=== PATIENT | male | born 1945 | race American Indian/Alaskan Native ===

== ENCOUNTER 2017-03-12 08:09 | Day surgery (SDC) | payer MEDICARE ==
[~2017-03-12 08:09] MED LIST: ANCEF/STERILE WATER 2 GM/20 ML 2 GM/20 ML SYRINGE IV NR; HEPARIN 10,000 UNITS/10 ML ONE; MARCAINE 0.5% INFILTRATI ONE; NACL 0.9% 1000 ML 1,000 ML IV SCH; NACL 0.9% 250ML 250 ML ONE; PEPCID PO NR
[2017-03-12] MEDS ORDERED: SUBLIMAZE ONE (08:59)
[2017-03-12] MEDS ORDERED: DIPRIVAN 10 MG/ML IV ONE (08:59)
[2017-03-12] MEDS ORDERED: ROBINUL ONE (09:00)
[2017-03-12] MEDS ORDERED: XYLOCAINE MPF 2% ONE (09:01)
[2017-03-12] MEDS ORDERED: DECADRON ONE (09:01)
[2017-03-12] MEDS ORDERED: NACL 0.9% 100 ML ONE (09:02)
[2017-03-12] MEDS ORDERED: NEO SYNEPHRINE ONE (09:02)
--- NOTE | 2017-03-12 09:03 | Anesthesia Consultation ---
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
--- NOTE | 2017-03-12 09:04 | Anesthesia Day of Surgery ---
Anesthesia Day of Surgery - Day of Surgery Patient Examined: Yes Patient H&P Reviewed: Yes Patient is NPO: Yes Beta Blockers: Yes
[2017-03-12] MEDS ORDERED: BREVIBLOC IV ONE (09:17)
[2017-03-12] MEDS ORDERED: DILAUDID IV PRN (09:30)
[2017-03-12] MEDS ORDERED: ZOFRAN IV PRN (09:30)
[2017-03-12 09:51] LABS: BUN/Creatinine Ratio 6.02; Chloride 97.2 mmol/L (98-107); Potassium 4.4 mmol/L (3.6-5.0)
[2017-03-12 10:07] LABS: Basophils % (Auto) 0.8 % (0.0-1.8); Eosinophils % (Auto) 3.8 % (0.0-4.3); Hematocrit 38.6 % (35.5-45.6); Mean Corpuscular HGB Conc 31 % (32-34); Mean Corpuscular Hemoglobin 27 pg (28-32); Mean Corpuscular Volume 85 fl (84-94); Platelet Count 239 K/mm3 (140-440); Red Blood Count 4.52 M/mm3 (3.65-5.03); Red Cell Distribution Width 18.7 % (13.2-15.2); White Blood Count 10.5 K/mm3 (4.5-11.0)
[2017-03-12] MEDS ORDERED: NACL 0.9% IR ONE (10:43)
[2017-03-12] MEDS ORDERED: HEPARIN 10,000 UNITS/10 ML 1,000 UNIT in NACL 0.9% 250ML 250 ML IR ONE (10:43)
[2017-03-12] MEDS ORDERED: MARCAINE 0.5% INFILTRATI ONE ×2 (10:43)
--- NOTE | 2017-03-12 11:30 | Short Stay Summary ---
Short Stay Documentation Date of service: 03/12/17 Narrative H&P: See H&P - History H&P: obtained from office - Allergies and Medications Current Medications: Allergies No Known Allergies Allergy (Verified 01/15/17 22:31) Home Medications Medication Instructions Recorded Confirmed Last Taken Type Aspirin [Aspirin BABY CHEW TAB] 81 mg PO QDAY #30 tab.chew 01/20/17 03/12/1706/19 07:00 Rx Metoprolol [Lopressor TAB] 50 mg PO Q12HR #60 tablet 01/20/17 03/12/17 03/12/17 07:00 Rx NIFEdipine XL [Procardia Xl] 30 mg PO Q12HR #60 tablet 01/20/17 03/12/17 07:15 Rx Furosemide [Lasix TAB] 80 mg PO BID 03/01/17 03/01/17 02/23/17 History Active Medications Famotidine (Pepcid) 20 mg PO PREOP NR Stop: 03/12/17 19:00 Last Admin: 03/12/17 09:41 Dose: 20 mg Hydromorphone HCl (Dilaudid) 0.5 mg IV Q10MIN PRN PRN Reason: Pain , Severe (7-10) Stop: 03/12/17 15:00 Cefazolin Sodium (Ancef/Sterile Water 2 Gm/20 Ml) 2 gm in 20 mls @ 80 mls/hr IV PREOP NR PRN Reason: Protocol Stop: 03/12/17 23:00 Sodium Chloride (Nacl 0.9% 1000 Ml) 1,000 mls @ 42 mls/hr IV DIRECT DEALNO Last Admin: 03/12/17 09:25 Dose: 42 mls/hr Ondansetron HCl (Zofran) 4 mg IV ONCE PRN PRN Reason: Nausea And Vomiting Stop: 03/12/17 15:00 - Brief post op/procedure progress note Date of procedure: 03/12/17 Pre-op diagnosis: ESRD Post-op diagnosis: same Procedure: Creation of Left Arm Brachiocephalic AV Fistula Anesthesia: SHERLYN Surgeon: RADHA PRATT Estimated blood loss: minimal Pathology: none Condition: stable - Disposition Condition at discharge: Good Disposition: DC-01 TO HOME OR SELFCARE Short Stay Discharge Plan Activity: other (No heavy lifting with left arm) Wound: open to air, keep clean and dry, other (Okay to wash the wound with soap and water but do not soak in water) Follow up with: PRIMARY CARE, [Primary Care Provider] - 7 Days RADHA PRATT MD [Staff Physician] - 14 Days Prescriptions: HYDROcodone/APAP 7.5-325 [[place] 7.5/325] 1 each PO Q6HR PRN #50 tablet PRN Reason: Pain
--- NOTE | 2017-03-12 11:32 | Operative Report ---
Operative Report Operative Report: Date of procedure: 03/12/2017 Pre-operative diagnosis: End-Stage Renal Disease Post-operative diagnosis: End-Stage Renal Disease Procedure(s): Creation of Left Brachial Artery to Cephalic Vein Arteriovenous Fistula Surgeon: Rony Rhodes MD Welder Setter Resistance Machine: None Anesthesia: Gen. endotracheal anesthesia EBL: Minimal Counts: Correct Complications: None Condition: Stable Findings: Successful creation of left brachiocephalic arteriovenous fistula with excellent thrill and palpable radial pulse at the completion of the case. Specimen: None Indications: The patient is a 71-year-old male with a history of end-stage renal disease currently on hemodialysis through a right internal jugular permacath. He is in need of long-term access and found to be a suitable candidate for creation of a left brachiocephalic arteriovenous fistula. He was given the risks, benefits, and alternative procedures and consented to the procedure. Description of Procedure: The patient was brought to the operating room and laid in supine position after general endotracheal anesthesia was administered the patient was prepped and draped in normal sterile fashion. After anesthetizing the skin a transverse incision was created just below the antecubital crease. Dissection was carried down to the the cephalic vein using sharp dissection. The vein was dissected out both proximally and distally and suture ligated and divided distally. I then ran a 3 Suma proximally in the vein, to ensure patency of the vein. Then flushed the vein with heparinized saline and flow was controlled with a bulldog clamp. I then dissected out the brachial artery through this incision circumferentially both proximal and distal and controlled the artery with vessel loops. I then placed the vessel loops on tension controlling the flow through the artery and created an arteriotomy using an 11 blade and Neff scissors. I created an end to side anastomosis between the cephalic vein and brachial artery using a 6-0 Prolene in running fashion. Prior to completing the anastomosis I flushed the artery both proximally and distally and then advanced a 3 Suma proximally to break the spasm in the artery. I then completed the anastomosis and removed all vessel loops allowing flow into the fistula which had an excellent thrill. I achieved hemostasis with a combination of direct pressure and electrocautery. Once hemostasis was achieved I anesthetized the wound with Marcaine. I then closed the wound in 2 layers and 3-0 Vicryl in a running fashion to close the deep dermal layer and 4- 0 Monocryl in a running fashion in the subcuticular layer. I dressed the wound with Surgicel. The patient tolerated the procedure well, all sponge needle and instrument counts were correct. The patient was taken to recovery in stable condition.
--- NOTE | 2017-03-12 12:21 | Post Anesthesia Evaluation ---
- Post Anesthesia Evaluation Patient Participated: Yes Airway Patent: Yes Stable Respiratory Function: Yes Nausea/Vomiting: No Temp > 96.8F: Yes Pain Manageable: Yes Adequeate Hydration: Yes Anesthesia Complications: No Block Receding Appropriately: Not Applicable Patient on Ventilator: No
[2017-03-12 14:02] VITALS: BP 153/84
== END 2017-03-12 13:30 | disposition home or self-care (01) ==
LOC: OR 08:09
PROVIDERS: ATTEND Surgery Vascular Surgery
DX: I12.0 Hypertensive chronic kidney disease with stage 5 chronic kidney disease or end stage renal disease (principal); N18.6 End stage renal disease; I65.23 Occlusion and stenosis of bilateral carotid arteries; D64.9 Anemia, unspecified; Z79.82 Long term (current) use of aspirin; Z79.899 Other long term (current) drug therapy; Z99.2 Dependence on renal dialysis; Z86.73 Personal history of transient ischemic attack (TIA), and cerebral infarction without residual deficits; Z98.890 Other specified postprocedural states; Z87.891 Personal history of nicotine dependence
CPT/HCPCS: 36415; 36821; 80048; 85025; J0690; J1100; J1644; J2370; J2405; J2704; J3010; J7030; J7050

== ENCOUNTER 2019-03-11 09:58 | Emergency (ER) | payer MEDICARE ==
[2019-03-11 10:05] VITALS: BP 145/64
[2019-03-11 10:40] LABS: Basophils % (Auto) 0.7 % (0.0-1.8); Eosinophils # (Auto) 0.5 K/mm3 (0.0-0.4); Hematocrit 28.2 % (35.5-45.6); Hemoglobin 9.6 gm/dl (11.8-15.2); Lymphocytes # (Auto) 1.3 K/mm3 (1.2-5.4); Lymphocytes % (Auto) 19.6 % (13.4-35.0); Mean Corpuscular HGB Conc 34 % (32-34); Mean Corpuscular Volume 96 fl (84-94); Monocytes # (Auto) 0.6 K/mm3 (0.0-0.8); Monocytes % (Auto) 8.6 % (0.0-7.3); Platelet Count 174 K/mm3 (140-440); Red Blood Count 2.94 M/mm3 (3.65-5.03); Red Cell Distribution Width 13.9 % (13.2-15.2)
[2019-03-11 11:08] LABS: Albumin 3.9 g/dL (3.9-5); Calcium 9.7 mg/dL (8.4-10.2)
--- NOTE | 2019-03-11 11:15 | Emergency Department Report ---
ED General Adult HPI - General Chief complaint: Nausea/Vomiting/Diarrhea Stated complaint: RT/LT PAIN/VOMITING Time Seen by Provider: 03/11/19 11:10 Source: patient Mode of arrival: Ambulatory Limitations: No Limitations - History of Present Illness Initial comments: 73-year-old man presents to the emergency department when he declined transport to his dialysis center. He has not missed dialysis. This is his regularly scheduled day. He vomited once at home. He had some left mid quadrant abdominal pain which was moderate in nature. Both his pain and nausea and vomiting has resolved and he is asymptomatic at this time. The patient states that he has had a variety of different pain complaints before. This abdominal pain complaint is not new. It has spontaneously resolved before as well. She states he's had no recent fever or chills. He's had no signs of GI bleeding. He's had no breathing difficulty or chest pain. -: Gradual, minutes(s) Location: abdomen Radiation: non-radiation Quality: aching Consistency: now resolved Improves with: none Worsens with: none Associated Symptoms: denies other symptoms, nausea/vomiting (vomiting 1 no persistent nausea) Treatments Prior to Arrival: none - Related Data Home Medications Medication Instructions Recorded Confirmed Last Taken Furosemide [Lasix TAB] 80 mg PO DAILY 03/01/17 07/23/17 02/23/17 Previous Rx's Medication Instructions Recorded Last Taken Type Aspirin [Aspirin BABY CHEW TAB] 81 mg PO QDAY #30 tab.chew 01/20/17 03/12/17 07:00 Rx Metoprolol [Lopressor TAB] 50 mg PO Q12HR #60 tablet 01/20/17 03/12/17 07:00 Rx NIFEdipine XL [Procardia Xl] 30 mg PO Q12HR #60 tablet 01/20/17 03/12/17 07:15 Rx Acetaminophen [Acetaminophen TAB] 650 mg PO Q4H PRN #7 day 07/24/17 Unknown Rx DOXYCYCLINE Hyclate [Vibramycin 100 mg PO Q12HR #7 day 07/24/17 Unknown Rx CAP] levoFLOXacin [Levaquin] 250 mg PO Q48H #7 dose 07/24/17 Unknown Rx Sulfamethoxazole/Trimethoprim 1 each PO DAILY #7 tablet 09/07/18 Unknown Rx [Bactrim DS TAB] Allergies Allergy/AdvReac Type Severity Reaction Status Date / Time No Known Allergies Allergy Verified 05/15/17 22:31 ED Review of Systems ROS: Stated complaint: RT/LT PAIN/VOMITING Other details as noted in HPI Constitutional: denies: chills, fever Eyes: denies: eye pain, eye discharge, vision change ENT: denies: ear pain, throat pain Respiratory: denies: cough, shortness of breath, wheezing Cardiovascular: denies: chest pain, palpitations Endocrine: no symptoms reported Gastrointestinal: as per HPI, abdominal pain, nausea, vomiting. denies: diarrhea Genitourinary: denies: urgency, dysuria Musculoskeletal: denies: back pain, joint swelling, arthralgia Skin: denies: rash, lesions Neurological: denies: headache, weakness, paresthesias Psychiatric: denies: anxiety, depression Hematological/Lymphatic: denies: easy bleeding, easy bruising ED Past Medical Hx - Past Medical History Previous Medical History?: Yes Hx Hypertension: Yes Hx Congestive Heart Failure: Yes Hx Liver Disease: No Hx Renal Disease: Yes (HD T TH Sat) Hx HIV: No Additional medical history: TIA 2014, anemia - Surgical History Past Surgical History?: Yes Additional Surgical History: Left arm fistula - Social History Smoking Status: Former Smoker Substance Use Type: None - Medications Home Medications: Home Medications Medication Instructions Recorded Confirmed Last Taken Type Aspirin [Aspirin BABY CHEW TAB] 81 mg PO QDAY #30 tab.chew 01/20/17 07/23/17 03/12/17 07:00 Rx Metoprolol [Lopressor TAB] 50 mg PO Q12HR #60 tablet 01/20/17 07/23/17 03/12/17 07:00 Rx NIFEdipine XL [Procardia Xl] 30 mg PO Q12HR #60 tablet 01/20/17 07/23/17 03/12/17 07:15 Rx Furosemide [Lasix TAB] 80 mg PO DAILY 03/01/17 07/23/17 02/23/17 History Acetaminophen [Acetaminophen TAB] 650 mg PO Q4H PRN #7 day 07/24/17 Unknown Rx DOXYCYCLINE Hyclate [Vibramycin 100 mg PO Q12HR #7 day 07/24/17 Unknown Rx CAP] levoFLOXacin [Levaquin] 250 mg PO Q48H #7 dose 07/24/17 Unknown Rx Sulfamethoxazole/Trimethoprim 1 each PO DAILY #7 tablet 09/07/18 Unknown Rx [Bactrim DS TAB] ED Physical Exam - General Limitations: No Limitations General appearance: alert, in no apparent distress - Head Head exam: Present: atraumatic, normocephalic - Eye Eye exam: Present: normal appearance. Absent: scleral icterus - ENT ENT exam: Present: mucous membranes moist - Neck Neck exam: Present: normal inspection - Respiratory Respiratory exam: Present: normal lung sounds bilaterally. Absent: respiratory distress - Cardiovascular Cardiovascular Exam: Present: regular rate, normal rhythm. Absent: systolic murmur, diastolic murmur, rubs, gallop - GI/Abdominal GI/Abdominal exam: Present: soft, normal bowel sounds. Absent: distended, tenderness, guarding, rebound, rigid - Rectal Rectal exam: Present: deferred - Extremities Exam Extremities exam: Present: normal inspection - Back Exam Back exam: Present: normal inspection - Neurological Exam Neurological exam: Present: alert, oriented X3, CN II-XII intact. Absent: motor sensory deficit - Psychiatric Psychiatric exam: Present: normal affect, normal mood - Skin Skin exam: Present: warm, dry, intact, normal color. Absent: rash ED Course Vital Signs 03/11/19 10:02 Temperature 97.8 F Pulse Rate 66 Respiratory 16 Rate Blood Pressure 145/64 O2 Sat by Pulse 100 Oximetry - Reevaluation(s) Reevaluation #1: Discussed the case with Dr. Hernandez. Dr. Hernandez recommended routine outpatient dialysis. Patient was discharged in stable and asymptomatic condition on reexamination. He was counseled. 03/11/19 12:14 03/11/19 12:15 ED Medical Decision Making - Lab Data Result diagrams: 03/11/19 10:15 03/11/19 10:15 Laboratory Results - last 24 hr 03/11/19 03/11/19 10:15 10:15 WBC 6.8 RBC 2.94 L Hgb 9.6 L Hct 28.2 L MCV 96 H MCH 33 H MCHC 34 RDW 13.9 Plt Count 174 Lymph % (Auto) 19.6 [place] % (Auto) 8.6 H Eos % (Auto) 7.0 H Baso % (Auto) 0.7 Lymph # 1.3 [place] # 0.6 Eos # 0.5 H Baso # 0.0 Seg Neutrophils % 64.1 Seg Neutrophils # 4.3 Sodium 140 Potassium 4.8 Chloride 92.8 L Carbon Dioxide 26 Anion Gap 26 BUN 90 H Creatinine 16.1 H Estimated GFR 4 BUN/Creatinine Ratio 6 Glucose 104 H Calcium 9.7 Total Bilirubin 0.40 AST 13 ALT 20 Alkaline Phosphatase 165 H Total Protein 6.9 Albumin 3.9 Albumin/Globulin Ratio 1.3 - EKG Data -: EKG Interpreted by Me EKG shows normal: sinus rhythm Rate: normal - EKG Data Interpretation: no acute changes Critical care attestation.: If time is entered above; I have spent that time in minutes in the direct care of this critically ill patient, excluding procedure time. ED Disposition Clinical Impression: End stage renal disease on dialysis Abdominal pain Qualifiers: Abdominal location: left upper quadrant Qualified Code(s): R10.12 - Left upper quadrant pain Anemia in chronic kidney disease (CKD) Qualifiers: Chronic kidney disease stage: on chronic dialysis Qualified Code(s): N18.6 - End stage renal disease; D63.1 - Anemia in chronic kidney disease; Z99.2 - Dependence on renal dialysis Disposition: TO HOME OR SELFCARE Is pt being admited?: No Does the pt Need Aspirin: No Condition: Stable Instructions: Chronic Kidney Disease (ED), Abdominal Pain (ED) Additional Instructions: He may call your dialysis Center for a possible makeup session tomorrow. If you are doing well you can get dialysis on . Return to the emergency department any recurrent symptoms or acute change. Referrals: REBECCA GONSALVES MD [Primary Care Provider] - 3-5 Days Time of Disposition: 12:16
--- NOTE | 2019-03-11 12:08 | XRay Report ---
CHEST 1 VIEW 11:15 INDICATION / CLINICAL INFORMATION: hypertension. COMPARISON: None available. FINDINGS: SUPPORT DEVICES: None HEART / MEDIASTINUM: No significant abnormality. LUNGS / PLEURA: No areas of consolidation are seen. A slightly congested appearance is noted however. No pleural effusions are seen. No pneumothorax. ADDITIONAL FINDINGS: No significant additional findings. IMPRESSION: Slight congestion Signer Name: Jeronimo Mckinnon MD Signed: 03/11/2019 12:04 PM Workstation Name: [id number]
== END 2019-03-11 12:50 | disposition home or self-care (01) ==
LOC: ED 09:58
DX: R10.9 Unspecified abdominal pain (principal); D63.1 Anemia in chronic kidney disease; I13.2 Hypertensive heart and chronic kidney disease with heart failure and with stage 5 chronic kidney disease, or end stage renal disease; N18.6 End stage renal disease; I50.9 Heart failure, unspecified; Z99.2 Dependence on renal dialysis; Z79.82 Long term (current) use of aspirin; Z79.899 Other long term (current) drug therapy; Z87.891 Personal history of nicotine dependence; Z98.890 Other specified postprocedural states; Z86.73 Personal history of transient ischemic attack (TIA), and cerebral infarction without residual deficits
CPT/HCPCS: 36415; 71045; 80053; 85025; 93005; 93010

== ENCOUNTER 2019-05-31 12:18 | Inpatient (IN) | payer MEDICARE ==
--- NOTE | 2019-05-31 12:38 | Event Note ---
ED Screening Note Date of service: 05/31/19 Time: 12:34 ED Screening Note: This is a 73 y.o. M. that presents to the ER with abdominal pain for 3-4 days. + n/v/d PMH ESRD on dialysis, HTN, and anemia Patient haven't been to dialysis in 8 days. States he didn't go because he is tired of dialysis. This initial assessment/diagnostic orders/clinical plan/treatment(s) is/are subject to change based on patients health status, clinical progression and re- assessment by fellow clinical providers in the ED. Further treatment and workup at subsequent clinical providers discretion. Patient/guardian urged not to elope from the ED as their condition may be serious if not clinically assessed and managed. Initial orders include: Labs and CT of abdomen
[2019-05-31 13:18] LABS: Basophils # (Auto) 0.1 K/mm3 (0.0-0.1); Basophils % (Auto) 0.7 % (0.0-1.8); Eosinophils # (Auto) 0.3 K/mm3 (0.0-0.4); Eosinophils % (Auto) 3.8 % (0.0-4.3); Hematocrit 29.2 % (35.5-45.6); Hemoglobin 9.8 gm/dl (11.8-15.2); Lymphocytes # (Auto) 1.3 K/mm3 (1.2-5.4); Lymphocytes % (Auto) 16.5 % (13.4-35.0); Mean Corpuscular HGB Conc 34 % (32-34); Mean Corpuscular Volume 96 fl (84-94); Monocytes # (Auto) 0.7 K/mm3 (0.0-0.8); Monocytes % (Auto) 8.3 % (0.0-7.3); Platelet Count 169 K/mm3 (140-440); Red Blood Count 3.04 M/mm3 (3.65-5.03)
--- NOTE | 2019-05-31 13:32 | Emergency Department Report ---
ED General Adult HPI - General Chief complaint: Abdominal Pain Stated complaint: STOMACH PAIN/NO DIALYSIS Time Seen by Provider: 05/31/19 12:32 Source: patient Mode of arrival: Ambulatory Limitations: No Limitations - History of Present Illness Initial comments: This is a 73 year old man who arrives this time again with his . I saw them in March when he diverted his transfer from dialysis because he didn't feel good. He was medically cleared in the emergency department. 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 I suspect this gentleman is suffering from poor decision making versus dementia. His seems to be very passive in this process. There are both very nice when they arrive in the emergency department. However they simply tell me that he has not felt like being dialyzed for each sessions. I triaged CT of his abdomen and pelvis was ordered. However the patient tells me that he does not have "any pain anywhere". He complains of generalized malaise and weakness. He has developed some leg edema. His lites states that he has been on minimal exertion. He likewise denies chest pain. -: Gradual, week(s) Quality: other (now denies any pain) Associated Symptoms: denies other symptoms, malaise, shortness of breath, weak ness - Related Data Home Medications Medication Instructions Recorded Confirmed Last Taken Furosemide [Lasix TAB] 80 mg PO DAILY 03/01/17 07/23/17 02/23/17 Previous Rx's Medication Instructions Recorded Last Taken Type Aspirin [Aspirin BABY CHEW TAB] 81 mg PO QDAY #30 tab.chew 01/20/17 03/12/17 07:00 Rx Metoprolol [Lopressor TAB] 50 mg PO Q12HR #60 tablet 01/20/17 03/12/17 07:00 Rx NIFEdipine XL [Procardia Xl] 30 mg PO Q12HR #60 tablet 01/20/17 03/12/17 07:15 Rx Acetaminophen [Acetaminophen TAB] 650 mg PO Q4H PRN #7 day 07/24/17 Unknown Rx DOXYCYCLINE Hyclate [Vibramycin 100 mg PO Q12HR #7 day 07/24/17 Unknown Rx CAP] levoFLOXacin [Levaquin] 250 mg PO Q48H #7 dose 07/24/17 Unknown Rx Sulfamethoxazole/Trimethoprim 1 each PO DAILY #7 tablet 09/07/18 Unknown Rx [Bactrim DS TAB] Allergies Allergy/AdvReac Type Severity Reaction Status Date / Time No Known Allergies Allergy Verified 05/31/19 12:37 ED Review of Systems ROS: Stated complaint: STOMACH PAIN/NO DIALYSIS Other details as noted in HPI Constitutional: denies: chills, fever Eyes: denies: eye pain, eye discharge, vision change ENT: denies: ear pain, throat pain Respiratory: shortness of breath, SOB with exertion. denies: cough, wheezing Cardiovascular: denies: chest pain, palpitations Endocrine: no symptoms reported Gastrointestinal: denies: abdominal pain (variable history), nausea, vomiting, diarrhea Genitourinary: denies: urgency, dysuria Musculoskeletal: denies: back pain, joint swelling, arthralgia Skin: denies: rash, lesions Neurological: denies: headache, weakness, paresthesias Psychiatric: denies: anxiety, depression Hematological/Lymphatic: denies: easy bleeding, easy bruising ED Past Medical Hx - Past Medical History Hx Hypertension: Yes Hx Congestive Heart Failure: Yes Hx Liver Disease: No Hx Renal Disease: Yes (HD T Sun) Hx HIV: No Additional medical history: TIA 2014, anemia - Surgical History Additional Surgical History: Left arm fistula - Social History Smoking Status: Never Smoker - Medications Home Medications: Home Medications Medication Instructions Recorded Confirmed Last Taken Type Aspirin [Aspirin BABY CHEW TAB] 81 mg PO QDAY #30 tab.chew 01/20/17 07/23/17 03/12/17 07:00 Rx Metoprolol [Lopressor TAB] 50 mg PO Q12HR #60 tablet 01/20/17 07/23/17 03/12/17 07:00 Rx NIFEdipine XL [Procardia Xl] 30 mg PO Q12HR #60 tablet 01/20/17 07/23/17 03/12/17 07:15 Rx Furosemide [Lasix TAB] 80 mg PO DAILY 03/01/17 07/23/17 02/23/17 History Acetaminophen [Acetaminophen TAB] 650 mg PO Q4H PRN #7 day 07/24/17 Unknown Rx DOXYCYCLINE Hyclate [Vibramycin 100 mg PO Q12HR #7 day 07/24/17 Unknown Rx CAP] levoFLOXacin [Levaquin] 250 mg PO Q48H #7 dose 07/24/17 Unknown Rx Sulfamethoxazole/Trimethoprim 1 each PO DAILY #7 tablet 09/07/18 Unknown Rx [Bactrim DS TAB] ED Physical Exam - General Limitations: No Limitations ED Course Vital Signs 05/31/19 05/31/19 05/31/19 12:32 13:13 13:26 Temperature 97.9 F Pulse Rate 76 79 69 Respiratory 18 16 Rate Blood Pressure 177/86 Blood Pressure 187/86 173/86 [Right] O2 Sat by Pulse 98 97 Oximetry - Reevaluation(s) Reevaluation #1: D/W Dr. Estrada. He will enter HD ordres. 05/31/19 13:45 Reevaluation #2: HEENT Insulin and D50 to temporize. Dr. Mills has entered dialysis orders. Dialysis is ready to take patient. He is stable for dialysis. 05/31/19 14:21 ED Medical Decision Making - Lab Data Result diagrams: 05/31/19 12:50 05/31/19 12:50 Laboratory Results - last 24 hr 05/31/19 05/31/19 12:50 12:50 WBC 8.0 RBC 3.04 L Hgb 9.8 L Hct 29.2 L MCV 96 H MCH 32 MCHC 34 RDW 15.0 Plt Count 169 Lymph % (Auto) 16.5 [place] % (Auto) 8.3 H Eos % (Auto) 3.8 Baso % (Auto) 0.7 Lymph # 1.3 [place] # 0.7 Eos # 0.3 Baso # 0.1 Seg Neutrophils % 70.7 H Seg Neutrophils # 5.6 Lipase 37 Laboratory Results - last 24 hr 05/31/19 05/31/19 12:50 12:50 WBC 8.0 RBC 3.04 L Hgb 9.8 L Hct 29.2 L MCV 96 H MCH 32 MCHC 34 RDW 15.0 Plt Count 169 Lymph % (Auto) 16.5 [place] % (Auto) 8.3 H Eos % (Auto) 3.8 Baso % (Auto) 0.7 Lymph # 1.3 [place] # 0.7 Eos # 0.3 Baso # 0.1 Seg Neutrophils % 70.7 H Seg Neutrophils # 5.6 Lipase 37 - EKG Data -: EKG Interpreted by De EKG shows normal: sinus rhythm, axis, intervals, QRS complexes (QS in V2 could be consistent with old zone. Consider lead placement consider LVH, [place]), ST-T waves - EKG Data Interpretation: no acute changes - Radiology Data Radiology results: image reviewed (mild increased interstitial markings) Critical care attestation.: If time is entered above; I have spent that time in minutes in the direct care of this critically ill patient, excluding procedure time. ED Disposition Clinical Impression: Hyperkalemia, End-stage renal disease needing dialysis Fluid overload Qualifiers: Hypervolemia type: other Qualified Code(s): E87.79 - Other fluid overload Disposition: DC-09 OP ADMIT IP TO THIS HOSP Is pt being admited?: Yes Does the pt Need Aspirin: Yes Condition: Stable Time of Disposition: 14:22
[2019-05-31 13:44] LABS: Alanine Aminotransferase 27 units/L (7-56); Albumin 3.8 g/dL (3.9-5); Hemolysis Index 3
--- NOTE | 2019-05-31 13:46 | XRay Report ---
CHEST 1 VIEW 1:07 PM INDICATION / CLINICAL INFORMATION: Hypertension. Abdominal pain. COMPARISON: 03/11/2019. FINDINGS: SUPPORT DEVICES: None. HEART / MEDIASTINUM: The heart size is borderline with a left ventricular configuration. Pulmonary va sculature is normal for technique. There is mild aortic tortuosity with calcification in the arch, bu t no evidence of aneurysm. LUNGS / PLEURA: No significant pulmonary or pleural abnormality. No pneumothorax. ADDITIONAL FINDINGS: No significant additional findings. IMPRESSION: No acute abnormality or significant change. Signer Name: Bo Dias MD Signed: 05/31/2019 1:41 PM Workstation Name: [id number]
[2019-05-31 13:53] LABS: BUN/Creatinine Ratio 5; Bilirubin,Direct < 0.2 mg/dL (0-0.2); Blood Urea Nitrogen 116 mg/dL (9-20)
[2019-05-31] MEDS ORDERED: DEXTROSE 50% IN WATER (25GM) 50 ML SYRINGE IV ONE ×2 (13:56→19:22)
[2019-05-31] MEDS ORDERED: INSULIN REGULAR, HUMAN 100 UNITS/1 ML IV ONE (13:57)
[2019-05-31] MEDS ORDERED: SODIUM CHLORIDE 0.9% 100 ML IV PRN ×2 (14:00→14:07)
[2019-05-31] MEDS ORDERED: ASPIRIN 81 MG TAB CHEW PO ONE (14:22)
--- NOTE | 2019-05-31 15:47 | Consultation ---
History of Present Illness - Reason for Consult Consult date: 05/31/19 end stage renal disease, hyperkalemia Requesting physician: KIMBERLY BRADY - History of Present Illness This is a 73 yo M with past medical history of hypertension, chronic diastolic HF, ESRD on HD, who presents to [facility] ER with complaints of generalized malaise and weakness along with worsening b/l LE edema after missing HD for more than 1 week, since he was " tired " to continues dialysis. however since above symptoms got worse pt decided to come to the hospital. Pt denies fever, chills, n/vd, CP, SOB, palpitations, abdominal pain, dysuria. Past History Past Medical History: heart failure, hypertension, renal failure Past Surgical History: Other (AVF placement ) Social history: denies: smoking, alcohol abuse, prescription drug abuse, IV drug use Family history: hypertension Medications and Allergies Allergies Allergy/AdvReac Type Severity Reaction Status Date / Time No Known Allergies Allergy Verified 05/31/19 12:37 Home Medications Medication Instructions Recorded Confirmed Last Taken Type Aspirin [Aspirin BABY CHEW TAB] 81 mg PO QDAY #30 tab.chew 01/20/17 07/23/17 03/12/17 07:00 Rx Metoprolol [Lopressor TAB] 50 mg PO Q12HR #60 tablet 01/20/17 07/23/17 03/12/17 07:00 Rx NIFEdipine XL [Procardia Xl] 30 mg PO Q12HR #60 tablet 01/20/17 07/23/17 03/12/17 07:15 Rx Furosemide [Lasix TAB] 80 mg PO DAILY 03/01/17 07/23/17 02/23/17 History Acetaminophen [Acetaminophen TAB] 650 mg PO Q4H PRN #7 day 07/24/17 Unknown Rx DOXYCYCLINE Hyclate [Vibramycin 100 mg PO Q12HR #7 day 07/24/17 Unknown Rx CAP] levoFLOXacin [Levaquin] 250 mg PO Q48H #7 dose 07/24/17 Unknown Rx Sulfamethoxazole/Trimethoprim 1 each PO DAILY #7 tablet 09/07/18 Unknown Rx [Bactrim DS TAB] Review of Systems All systems: negative Constitutional: fatigue, weakness Exam - Vital Signs Vital signs: Vital Signs Temp Pulse Resp BP Pulse Ox 97.9 F 76 18 187/86 98 05/31/19 12:32 05/31/19 12:32 05/31/19 12:32 05/31/19 12:32 05/31/19 12:32 - General Appearance General appearance: well-developed, well-nourished, appears stated age EENT: ATNC, PERRL, mucous membranes moist Neck: Present: neck supple Respiratory: Decreased Breath Sounds Heart: regular, S1S2 Gastrointestinal: Present: normoactive bowel sounds Integumentary: no rash, other (++ edema b/l LE ) Neurologic: no focal deficit, alert and oriented x3, strength 5/5, CN 3-12 intact Psychiatric: mood/affect appropriate, cooperative Results - Lab Results 05/31/19 12:50 05/31/19 12:50 Most recent lab results Calcium 9.0 mg/dL (8.4-10.2) 05/31/19 12:50 Phosphorus 9.00 mg/dL (2.5-4.5) H 05/31/19 12:50 Assessment and Plan - Patient Problems (1) Hyperkalemia Current Visit: No Status: Acute Plan to address problem: arranged stat HD for correction of hyperkalemia and solute clearance. cont 2 g K renal diet (2) Uremia Current Visit: Yes Status: Acute Plan to address problem: due to missed HD. HD stat for solute clearance and correction of uremic complication (3) ESRD (end stage renal disease) on dialysis Current Visit: No Status: Acute Plan to address problem: HD stat, cont HD on MWF schedule thereafter (4) Hypertensive chronic kidney disease with stage 1 through stage 4 chronic kidney disease, or unspecified chronic kidney disease Current Visit: Yes Status: Acute Plan to address problem: monitor BP on current meds
[2019-05-31 16:10] LABS: Hepatitis B Surface Antigen Non-Reactive (Negative); Hepatitis C Virus Antibody Non-Reactive (NonReactive)
[2019-05-31] MEDS ORDERED: ACETAMINOPHEN 325 MG TAB PO PRN (19:18)
[2019-05-31] MEDS ORDERED: ONDANSETRON 4 MG/2 ML INJ IV PRN (19:18)
[2019-05-31] MEDS ORDERED: SODIUM BICARB 8.4% 50 MEQ/50 ML SYRINGE IV ONE (19:21)
[2019-05-31] MEDS ORDERED: CALCIUM GLUCONATE 1,000 MG in SODIUM CHLORIDE 0.9% 100 ML IV ONE (20:00)
[2019-05-31] MEDS: HEPARIN 5,000 UNIT/1 ML VIAL SUB-Q SCH (22:09)
[2019-06-01 04:21] LABS: Basophils % (Auto) 0.6 % (0.0-1.8); Eosinophils # (Auto) 0.3 K/mm3 (0.0-0.4); Eosinophils % (Auto) 4.1 % (0.0-4.3); Hematocrit 25.5 % (35.5-45.6); Hemoglobin 8.6 gm/dl (11.8-15.2); Lymphocytes # (Auto) 1.3 K/mm3 (1.2-5.4); Lymphocytes % (Auto) 19.3 % (13.4-35.0); Mean Corpuscular HGB Conc 34 % (32-34); Mean Corpuscular Volume 93 fl (84-94); Monocytes # (Auto) 0.7 K/mm3 (0.0-0.8); Monocytes % (Auto) 10.3 % (0.0-7.3); Platelet Count 163 K/mm3 (140-440); Red Blood Count 2.73 M/mm3 (3.65-5.03); Red Cell Distribution Width 15.2 % (13.2-15.2)
[2019-06-01 04:42] LABS: Calcium 8.4 mg/dL (8.4-10.2)
--- NOTE | 2019-06-01 07:03 | History and Physical Report ---
History of Present Illness Date of examination: 05/31/19 Date of admission: 05/31/19 14:22 Chief complaint: Increasing SOB for 12 days. History of present illness: 73 year old man with Htn,ESRD comes in for increasing sob.Orthopnea present.Missed HD for 10 days.No Chest pain. Increasing SOB on Minimal exertion.No fever or chills. Past Medical History Hypertension: Yes Congestive Heart Failure: Yes Renal Disease: Yes (HD T TH Sat) Additional medical history: TIA 2014, anemia Surgical History Additional Surgical History: Left arm fistula Social History Smoking Status: Never Smoker Family History Htn Medications Home Medications: Home Medications Medication Instructions Recorded Confirmed Last Taken Type Aspirin [Aspirin BABY CHEW TAB] 81 mg PO QDAY #30 tab.chew 01/20/17 07/23/17 03/12/17 07:00 Rx Metoprolol [Lopressor TAB] 50 mg PO Q12HR #60 tablet 01/20/17 07/23/17 03/12/17 07:00 Rx NIFEdipine XL [Procardia Xl] 30 mg PO Q12HR #60 tablet 01/20/17 07/23/17 03/12/17 07:15 Rx Furosemide [Lasix TAB] 80 mg PO DAILY 03/01/17 07/23/17 02/23/17 History Acetaminophen [Acetaminophen TAB] 650 mg PO Q4H PRN #7 day 07/24/17 Unknown Rx DOXYCYCLINE Hyclate [Vibramycin 100 mg PO Q12HR #7 day 07/24/17 Unknown Rx CAP] levoFLOXacin [Levaquin] 250 mg PO Q48H #7 dose 07/24/17 Unknown Rx Sulfamethoxazole/Trimethoprim 1 each PO DAILY #7 tablet 09/07/18 Unknown Rx [Bactrim DS TAB] Review of Systems ROS: Stated complaint: STOMACH PAIN/NO DIALYSIS Other details as noted in HPI Constitutional: denies: chills, fever Eyes: denies: eye pain, eye discharge, vision change ENT: denies: ear pain, throat pain Respiratory: shortness of breath, SOB with exertion. denies: cough, wheezing Cardiovascular: denies: chest pain, palpitations Endocrine: no symptoms reported Gastrointestinal: denies: abdominal pain (variable history), nausea, vomiting, diarrhea Genitourinary: denies: urgency, dysuria Musculoskeletal: denies: back pain, joint swelling, arthralgia Skin: denies: rash, lesions Neurological: denies: headache, weakness, paresthesias Psychiatric: denies: anxiety, depression Hematological/Lymphatic: denies: easy bleeding, easy bruising Past History Past Medical History: heart failure, hypertension, renal failure Past Surgical History: Other (AVF placement ) Social history: denies: smoking, alcohol abuse, prescription drug abuse, IV drug use Family history: hypertension Medications and Allergies Allergies Allergy/AdvReac Type Severity Reaction Status Date / Time No Known Allergies Allergy Verified 05/31/19 12:37 Home Medications Medication Instructions Recorded Confirmed Last Taken Type Aspirin [Aspirin BABY CHEW TAB] 81 mg PO QDAY #30 tab.chew 01/20/17 05/31/19 03/12/17 07:00 Rx Metoprolol [Lopressor TAB] 50 mg PO Q12HR #60 tablet 01/20/17 05/31/19 03/12/17 07:00 Rx NIFEdipine XL [Procardia Xl] 30 mg PO Q12HR #60 tablet 01/20/17 05/31/19 03/12/17 07:15 Rx Furosemide [Lasix TAB] 80 mg PO DAILY 03/01/17 05/31/19 02/23/17 History Acetaminophen [Acetaminophen TAB] 650 mg PO Q4H PRN #7 day 07/24/17 05/31/19 Unknown Rx DOXYCYCLINE Hyclate [Vibramycin 100 mg PO Q12HR #7 day 07/24/17 05/31/19 Unknown Rx CAP] levoFLOXacin [Levaquin] 250 mg PO Q48H #7 dose 07/24/17 05/31/19 Unknown Rx Sulfamethoxazole/Trimethoprim 1 each PO DAILY #7 tablet 09/07/18 05/31/19 Unknown Rx [Bactrim DS TAB] Active Meds: Active Medications Acetaminophen (Tylenol) 650 mg PO Q4H PRN PRN Reason: Pain MILD(1-3)/Fever >100.5/ARMAS Heparin Sodium (Porcine) (Heparin) 5,000 unit SUB-Q Q12HR DELANO Last Admin: 05/31/19 22:09 Dose: 5,000 unit Documented by: Sodium Chloride (Nacl 0.9%) 100 mls @ 999 mls/hr IV AUGUST PRN PRN Reason: Hypotension Ondansetron HCl (Zofran) 4 mg IV Q8H PRN PRN Reason: Nausea And Vomiting Sodium Chloride (Sodium Chloride Flush Syringe 10 Ml) 10 ml IV BID DELANO Last Admin: 05/31/19 22:09 Dose: 10 ml Documented by: Sodium Chloride (Sodium Chloride Flush Syringe 10 Ml) 10 ml IV PRN PRN PRN Reason: LINE FLUSH Exam - Constitutional Vitals: Temp Pulse Resp BP Pulse Ox 99.1 F 82 18 171/83 98 05/31/19 20:16 05/31/19 22:00 05/31/19 22:00 05/31/19 20:16 05/31/19 22:00 General appearance: Present: no acute distress, well-nourished - EENT Eyes: Present: PERRL ENT: hearing intact, clear oral mucosa - Neck Neck: Present: supple, normal ROM - Respiratory Respiratory effort: normal Respiratory: bilateral: CTA, rales - Cardiovascular Heart rate: 88 Rhythm: regular Heart Sounds: Present: S1 & S2. Absent: rub, click - Extremities Extremities: no ischemia, pulses intact, pulses symmetrical, No edema Peripheral Pulses: within normal limits - Abdominal General gastrointestinal: Present: soft, non-tender, non-distended, normal bowel sounds Male genitourinary: Present: normal - Integumentary Integumentary: Present: clear, warm, dry - Musculoskeletal Musculoskeletal: gait normal, strength equal bilaterally - Psychiatric Psychiatric: appropriate mood/affect, intact judgment & insight - Neurologic Neurologic: CNII-XII intact, moves all extremities - Allied Health Allied health notes reviewed: nursing, case management Results - Labs CBC & Chem 7: 06/01/19 03:17 06/01/19 03:17 Labs: Laboratory Last Values WBC 6.6 K/mm3 (4.5-11.0) 06/01/19 03:17 RBC 2.73 M/mm3 (3.65-5.03) L 06/01/19 03:17 Hgb 8.6 gm/dl (11.8-15.2) L 06/01/19 03:17 Hct 25.5 % (35.5-45.6) L 06/01/19 03:17 MCV 93 fl (84-94) 06/01/19 03:17 MCH 32 pg (28-32) 06/01/19 03:17 MCHC 34 % (32-34) 06/01/19 03:17 RDW 15.2 % (13.2-15.2) 06/01/19 03:17 Plt Count 163 K/mm3 (140-440) 06/01/19 03:17 Lymph % (Auto) 19.3 % (13.4-35.0) 06/01/19 03:17 [place] % (Auto) 10.3 % (0.0-7.3) H 06/01/19 03:17 Eos % (Auto) 4.1 % (0.0-4.3) 06/01/19 03:17 Baso % (Auto) 0.6 % (0.0-1.8) 06/01/19 03:17 Lymph # 1.3 K/mm3 (1.2-5.4) 06/01/19 03:17 [place] # 0.7 K/mm3 (0.0-0.8) 06/01/19 03:17 Eos # 0.3 K/mm3 (0.0-0.4) 06/01/19 03:17 Baso # 0.0 K/mm3 (0.0-0.1) 06/01/19 03:17 Seg Neutrophils % 65.7 % (40.0-70.0) 06/01/19 03:17 Seg Neutrophils # 4.3 K/mm3 (1.8-7.7) 06/01/19 03:17 Sodium 140 mmol/L (137-145) 06/01/19 03:17 Potassium 4.6 mmol/L (3.6-5.0) 06/01/19 03:17 Chloride 96.4 mmol/L (98-107) L 06/01/19 03:17 Carbon Dioxide 26 mmol/L (22-30) D 06/01/19 03:17 22 mmol/L 06/01/19 03:17 BUN 44 mg/dL (9-20) H 06/01/19 03:17 13.0 mg/dL (0.8-1.5) H 06/01/19 03:17 Estimated GFR 5 ml/min 06/01/19 03:17 3 % 06/01/19 03:17 Glucose 86 mg/dL (75-100) 06/01/19 03:17 Calcium 8.4 mg/dL (8.4-10.2) 06/01/19 03:17 Phosphorus 9.00 mg/dL (2.5-4.5) H 05/31/19 12:50 0.40 mg/dL (0.1-1.2) 05/31/19 12:50 < 0.2 mg/dL (0-0.2) 05/31/19 12:50 0.2 mg/dL 05/31/19 12:50 AST 13 units/L (5-40) 05/31/19 12:50 ALT 27 units/L (7-56) 05/31/19 12:50 139 units/L (35-129) H 05/31/19 12:50 7.2 g/dL (6.3-8.2) 05/31/19 12:50 3.8 g/dL (3.9-5) L 05/31/19 12:50 1.1 % 05/31/19 12:50 37 units/L (13-60) 05/31/19 12:50 Hepatitis A IgM Ab Non-reactive (NonReactive) 05/31/19 14:15 Hep Bs Antigen Non-reactive (Negative) 05/31/19 14:15 Hep B Core IgM Ab Non-reactive (NonReactive) 05/31/19 14:15 Non-reactive (NonReactive) 05/31/19 14:15 Short CBC 05/31/19 06/01/19 Range/Units 12:50 03:17 WBC 8.0 6.6 (4.5-11.0) K/mm3 Hgb 9.8 L 8.6 L (11.8-15.2) gm/dl Hct 29.2 L 25.5 L (35.5-45.6) % Plt Count 169 163 (140-440) K/mm3 BMP 05/31/19 05/31/19 06/01/19 12:50 23:14 03:17 Sodium 140 140 Potassium 6.4 H* 4.1 D 4.6 Chloride 95.8 L 96.4 L Carbon Dioxide 18 L 26 D BUN 116 H 44 H Creatinine 24.7 H 13.0 H Glucose 112 H 86 Calcium 9.0 8.4 Liver Function 05/31/19 Range/Units 12:50 Total Bilirubin 0.40 (0.1-1.2) mg/dL Direct Bilirubin < 0.2 (0-0.2) mg/dL AST 13 (5-40) units/L ALT 27 (7-56) units/L Alkaline Phosphatase 139 H (35-129) units/L Albumin 3.8 L (3.9-5) g/dL - Imaging and Cardiology EKG: report reviewed Chest x-ray: report reviewed Assessment and Plan Advance Directives: Yes (Full code) VTE prophylaxis?: Chemical Plan of care discussed with patient/family: Yes - Patient Problems (1) Acute exacerbation of congestive heart failure Current Visit: Yes Status: Acute Qualifiers: Heart failure type: combined systolic and diastolic Qualified Code(s): I50.43 - Acute on chronic combined systolic (congestive) and diastolic (congestive) heart failure Plan to address problem: Secondary to fluid overload Increased ultrafiltration (2) Acute on chronic renal failure Current Visit: No Status: Acute Qualifiers: Acute renal failure type: unspecified Chronic kidney disease stage: stage 5, not on chronic dialysis Qualified Code(s): N17.9 - Acute kidney failure, unspecified; N18.5 - Chronic kidney disease, stage 5 Plan to address problem: Sec to missed HD (3) ESRD (end stage renal disease) on dialysis Current Visit: No Status: Acute (4) Volume overload Current Visit: Yes Status: Acute Qualifiers: Hypervolemia type: unspecified Qualified Code(s): E87.70 - Fluid overload, unspecified Plan to address problem: Sec to missed HD (5) Hyperkalemia Current Visit: No Status: Acute Plan to address problem: Treaed in ED with Kayexalate calcium gluconate Emergent HD (6) HTN (hypertension) Current Visit: Yes Status: Chronic Qualifiers: Hypertension type: essential hypertension Qualified Code(s): I10 - Essential (primary) hypertension Plan to address problem: Cont antihypertensives (7) DVT prophylaxis Current Visit: Yes Status: Acute Plan to address problem: On Heparin and GI prophylaxis
[2019-06-01] MEDS ORDERED: ACETAMINOPHEN 325 MG TAB PO PRN ×2 (07:14→07:15)
[2019-06-01] MEDS ORDERED: ONDANSETRON 4 MG/2 ML INJ IV PRN (07:15)
[2019-06-01] MEDS ORDERED: HYDROmorphone 1 MG/1 ML INJ IV PRN (07:15)
[2019-06-01] MEDS ORDERED: oxyCODONE /ACETAMINOPHEN 5-325MG TAB PO PRN (07:15)
[2019-06-01] MEDS ORDERED: NON-FORMULARY EACH (Furosemide [Lasix Tab] 80 MG) PO SCH (10:00)
--- NOTE | 2019-06-01 10:16 | Progress Note ---
Assessment and Plan - Patient Problems (1) Hyperkalemia Current Visit: No Status: Acute Plan to address problem: corrected with HD. cont 2 g K renal diet (2) Uremia Current Visit: Yes Status: Acute Plan to address problem: improved with HD (3) ESRD (end stage renal disease) on dialysis Current Visit: No Status: Acute Plan to address problem: cont HD on MWF schedule (4) Hypertensive chronic kidney disease with stage 1 through stage 4 chronic kidney disease, or unspecified chronic kidney disease Current Visit: Yes Status: Acute Plan to address problem: monitor BP on current meds Subjective Date of service: 06/01/19 Principal diagnosis: ESRD Interval history: Pt awake, alert, in no acute distress Objective - Vital Signs Vital signs: Vital Signs - 12hr 06/01/19 07:38 Temperature 98.3 F Pulse Rate 78 Respiratory 12 Rate Blood Pressure 163/81 O2 Sat by Pulse 96 Oximetry - General Appearance General appearance: well-developed, well-nourished, appears stated age EENT: ATNC, PERRL, mucous membranes moist Neck: no JVD Respiratory: Present: Clear to Ascultation Cardiology: regular, S1S2 Gastrointestinal: normoactive bowel sounds Integumentary: no rash, other (+ edema ) Neurologic: no focal deficit, alert and oriented x3, strength 5/5, CN 3-12 intact Psychiatric: mood/affect appropriate, cooperative - Lab 06/01/19 03:17 06/01/19 03:17 Most recent lab results Calcium 8.4 mg/dL (8.4-10.2) 06/01/19 03:17 Phosphorus 9.00 mg/dL (2.5-4.5) H 05/31/19 12:50 Medications & Allergies - Medications Allergies/Adverse Reactions: Allergies No Known Allergies Allergy (Verified 05/31/19 12:37) Home Medications: Home Medications Medication Instructions Recorded Confirmed Last Taken Type Aspirin [Aspirin BABY CHEW TAB] 81 mg PO QDAY #30 tab.chew 01/20/17 05/31/19 03/12/17 07:00 Rx Metoprolol [Lopressor TAB] 50 mg PO Q12HR #60 tablet 01/20/17 05/31/19 03/12/17 07:00 Rx NIFEdipine XL [Procardia Xl] 30 mg PO Q12HR #60 tablet 01/20/17 05/31/19 03/12/17 07:15 Rx Furosemide [Lasix TAB] 80 mg PO DAILY 03/01/17 05/31/19 02/23/17 History Acetaminophen [Acetaminophen TAB] 650 mg PO Q4H PRN #7 day 07/24/17 05/31/19 Unknown Rx DOXYCYCLINE Hyclate [Vibramycin 100 mg PO Q12HR #7 day 07/24/17 05/31/19 Unknown Rx CAP] levoFLOXacin [Levaquin] 250 mg PO Q48H #7 dose 07/24/17 05/31/19 Unknown Rx Sulfamethoxazole/Trimethoprim 1 each PO DAILY #7 tablet 09/07/18 05/31/19 Unknown Rx [Bactrim DS TAB] Active Medications: Generic Name Dose Route Start Last Admin Trade Name Freq PRN Reason Stop Dose Admin Acetaminophen 650 mg 06/01/19 07:15 Tylenol PO Q4H PRN Pain MILD(1-3)/Fever >100.5/ARMAS Aspirin 81 mg 06/01/19 10:00 Baby Aspirin PO QDAY [facility] Famotidine 10 mg 06/01/19 10:00 Pepcid PO BID [facility] Furosemide 80 mg 06/01/19 10:00 Lasix PO DAILY [facility] Heparin Sodium (Porcine) 5,000 unit 05/31/19 22:00 05/31/19 22:09 Heparin SUB-Q 5,000 unit Q12HR [facility] Administration Hydromorphone HCl 0.5 mg 06/01/19 07:15 Dilaudid IV Q3H PRN Pain , Severe (7-10) Sodium Chloride 100 mls @ 999 mls/hr 05/31/19 14:07 Nacl 0.9% IV AUGUST PRN Hypotension Metoprolol Tartrate 50 mg 06/01/19 10:00 Lopressor PO Q12HR DELANO Nifedipine 30 mg 06/01/19 10:00 Procardia Xl PO Q12HR [facility] Ondansetron HCl 4 mg 05/31/19 19:18 Zofran IV Q8H PRN Nausea And Vomiting Oxycodone/Acetaminophen 1 tab 06/01/19 07:15 Percocet 5/325 PO Q6H PRN Pain, Moderate (4-6) Sodium Chloride 10 ml 06/01/19 10:00 Sodium Chloride Flush Syringe 10 Ml IV BID DELANO Sodium Chloride 10 ml 06/01/19 07:15 Sodium Chloride Flush Syringe 10 Ml IV PRN PRN LINE FLUSH
[2019-06-01] MEDS: ASPIRIN 81 MG TAB CHEW PO SCH (10:18)
[2019-06-01] MEDS: FAMOTIDINE 10 MG TAB PO SCH ×2 (10:18→21:08)
[2019-06-01] MEDS: METOPROLOL TARTRATE 50 MG TAB PO SCH ×2 (10:18→21:09)
[2019-06-01] MEDS: FUROSEMIDE 40 MG TAB PO SCH (10:18)
[2019-06-01] MEDS: HEPARIN 5,000 UNIT/1 ML VIAL SUB-Q SCH ×2 (10:18→21:19)
[2019-06-01] MEDS: NIFEdipine XL 30 MG TAB PO SCH ×2 (10:18→21:09)
--- NOTE | 2019-06-01 12:32 | Progress Note ---
Assessment and Plan Assessment and plan: --Hyperkalemia; present on admission Corrected, monitor lites, HD per schedule --Acute fluid overload /noncompliance with dialysis Patient missed hemodialysis for 10 days Stat hemodialysis, strongly advised competence --End-stage renal disease; on hemodialysis Nephrology consulted, HD per schedule --Hypertension; moderate control Continue current antihypertensives and when necessary medications --Anemia of chronic kidney disease; Closely monitor H&H and transfuse as needed --Medical noncompliance; counseling Advised to adhere to hemodialysis per schedule --DVT prophylaxis; heparin renal dose Monitor closely and adjust management as needed Plan of care reviewed with the patient and his at the bedside Disposition; continue inpatient care, discharge when medically stable History Interval history: Patient seen and examined medical records reviewed Admitted with worsening shortness of breath and fluid overload Missed hemodialysis for 10 days Patient feels slightly better. No new complaints Vital signs reviewed Hospitalist Physical - Constitutional Vitals: Temp Pulse Resp BP Pulse Ox 98.3 F 78 12 163/81 96 06/01/19 07:38 06/01/19 10:00 06/01/19 07:38 06/01/19 07:38 06/01/19 07:38 General appearance: Present: no acute distress, well-nourished - EENT Eyes: Present: PERRL, EOM intact - Neck Neck: Present: supple, normal ROM - Respiratory Respiratory effort: normal Respiratory: bilateral: diminished, rales, negative: rhonchi, wheezing - Cardiovascular Rhythm: regular Heart Sounds: Present: S1 & S2 - Extremities Extremities: no ischemia, No edema - Abdominal General gastrointestinal: soft, non-tender, non-distended, normal bowel sounds - Integumentary Integumentary: Present: clear, warm - Psychiatric Psychiatric: appropriate mood/affect, cooperative - Neurologic Neurologic: CNII-XII intact, moves all extremities Results - Labs CBC & Chem 7: 06/01/19 03:17 06/01/19 03:17 Labs: Laboratory Last Values WBC 6.6 K/mm3 (4.5-11.0) 06/01/19 03:17 RBC 2.73 M/mm3 (3.65-5.03) L 06/01/19 03:17 Hgb 8.6 gm/dl (11.8-15.2) L 06/01/19 03:17 Hct 25.5 % (35.5-45.6) L 06/01/19 03:17 MCV 93 fl (84-94) 06/01/19 03:17 MCH 32 pg (28-32) 06/01/19 03:17 MCHC 34 % (32-34) 06/01/19 03:17 RDW 15.2 % (13.2-15.2) 06/01/19 03:17 Plt Count 163 K/mm3 (140-440) 06/01/19 03:17 Lymph % (Auto) 19.3 % (13.4-35.0) 06/01/19 03:17 [place] % (Auto) 10.3 % (0.0-7.3) H 06/01/19 03:17 Eos % (Auto) 4.1 % (0.0-4.3) 06/01/19 03:17 Baso % (Auto) 0.6 % (0.0-1.8) 06/01/19 03:17 Lymph # 1.3 K/mm3 (1.2-5.4) 06/01/19 03:17 [place] # 0.7 K/mm3 (0.0-0.8) 06/01/19 03:17 Eos # 0.3 K/mm3 (0.0-0.4) 06/01/19 03:17 Baso # 0.0 K/mm3 (0.0-0.1) 06/01/19 03:17 Seg Neutrophils % 65.7 % (40.0-70.0) 06/01/19 03:17 Seg Neutrophils # 4.3 K/mm3 (1.8-7.7) 06/01/19 03:17 Sodium 140 mmol/L (137-145) 06/01/19 03:17 Potassium 4.6 mmol/L (3.6-5.0) 06/01/19 03:17 Chloride 96.4 mmol/L (98-107) L 06/01/19 03:17 Carbon Dioxide 26 mmol/L (22-30) D 06/01/19 03:17 22 mmol/L 06/01/19 03:17 BUN 44 mg/dL (9-20) H 06/01/19 03:17 13.0 mg/dL (0.8-1.5) H 06/01/19 03:17 Estimated GFR 5 ml/min 06/01/19 03:17 3 % 06/01/19 03:17 Glucose 86 mg/dL (75-100) 06/01/19 03:17 4.6 % (4-6) 06/01/19 09:50 Calcium 8.4 mg/dL (8.4-10.2) 06/01/19 03:17 Phosphorus 9.00 mg/dL (2.5-4.5) H 05/31/19 12:50 0.40 mg/dL (0.1-1.2) 05/31/19 12:50 < 0.2 mg/dL (0-0.2) 05/31/19 12:50 0.2 mg/dL 05/31/19 12:50 AST 13 units/L (5-40) 05/31/19 12:50 ALT 27 units/L (7-56) 05/31/19 12:50 139 units/L (35-129) H 05/31/19 12:50 7.2 g/dL (6.3-8.2) 05/31/19 12:50 3.8 g/dL (3.9-5) L 05/31/19 12:50 1.1 % 05/31/19 12:50 37 units/L (13-60) 05/31/19 12:50 Hepatitis A IgM Ab Non-reactive (NonReactive) 05/31/19 14:15 Hep Bs Antigen Non-reactive (Negative) 05/31/19 14:15 Hep B Core IgM Ab Non-reactive (NonReactive) 05/31/19 14:15 Non-reactive (NonReactive) 05/31/19 14:15 Active Medications - Current Medications Current Medications: Generic Name Dose Route Start Last Admin Trade Name Freq PRN Reason Stop Dose Admin Acetaminophen 650 mg 06/01/19 07:15 Tylenol PO Q4H PRN Pain MILD(1-3)/Fever >100.5/ARMAS Aspirin 81 mg 06/01/19 10:00 06/01/19 10:18 Baby Aspirin PO 81 mg QDAY DEALNO Administration Famotidine 10 mg 06/01/19 10:00 06/01/19 10:18 Pepcid PO 10 mg BID DELANO Administration Furosemide 80 mg 06/01/19 10:00 06/01/19 10:18 Lasix PO 80 mg DAILY DELANO Administration Heparin Sodium (Porcine) 5,000 unit 05/31/19 22:00 06/01/19 10:18 Heparin SUB-Q Not Given Q12HR DELANO Hydromorphone HCl 0.5 mg 06/01/19 07:15 Dilaudid IV Q3H PRN Pain , Severe (7-10) Sodium Chloride 100 mls @ 999 mls/hr 05/31/19 14:07 Nacl 0.9% IV AUGUST PRN Hypotension Metoprolol Tartrate 50 mg 06/01/19 10:00 06/01/19 10:18 Lopressor PO 50 mg Q12HR DELANO Administration Nifedipine 30 mg 06/01/19 10:00 06/01/19 10:18 Procardia Xl PO 30 mg Q12HR DELANO Administration Ondansetron HCl 4 mg 05/31/19 19:18 Zofran IV Q8H PRN Nausea And Vomiting Oxycodone/Acetaminophen 1 tab 06/01/19 07:15 Percocet 5/325 PO Q6H PRN Pain, Moderate (4-6) Sodium Chloride 10 ml 06/01/19 10:00 06/01/19 10:18 Sodium Chloride Flush Syringe 10 Ml IV 10 ml BID DELANO Administration Sodium Chloride 10 ml 06/01/19 07:15 Sodium Chloride Flush Syringe 10 Ml IV PRN PRN LINE FLUSH
[2019-06-02] MEDS ORDERED: HALOPERIDOL LACTATE 5 MG/1 ML INJ IM STA (03:45)
[2019-06-02] MEDS ORDERED: SODIUM CHLORIDE 0.9% 100 ML IV PRN (09:14)
[2019-06-02] MEDS: HEPARIN 5,000 UNIT/1 ML VIAL SUB-Q SCH (09:20)
[2019-06-02] MEDS: FUROSEMIDE 40 MG TAB PO SCH (09:20)
[2019-06-02] MEDS: ASPIRIN 81 MG TAB CHEW PO SCH (09:20)
[2019-06-02] MEDS: NIFEdipine XL 30 MG TAB PO SCH (09:20)
[2019-06-02] MEDS: FAMOTIDINE 10 MG TAB PO SCH (09:21)
--- NOTE | 2019-06-02 09:23 | Progress Note ---
Assessment and Plan - Patient Problems (1) Hyperkalemia Current Visit: No Status: Acute Plan to address problem: corrected with HD. cont 2 g K renal diet (2) Uremia Current Visit: Yes Status: Acute Plan to address problem: improved with HD (3) ESRD (end stage renal disease) on dialysis Current Visit: No Status: Acute Plan to address problem: HD arranged for today, pt can be discharged after HD from renal stand point and resume outpatient HD on TTS schedule at [facility]. Discussed with patient and regarding importance of compliance with prescribed treatments. (4) Hypertensive chronic kidney disease with stage 1 through stage 4 chronic kidney disease, or unspecified chronic kidney disease Current Visit: Yes Status: Acute Plan to address problem: monitor BP on current meds Subjective Date of service: 06/02/19 Principal diagnosis: ESRD Interval history: Pt awake, alert, in no acute distress Objective - Vital Signs Vital signs: Vital Signs - 12hr 06/02/19 06/02/19 06/02/19 01:31 03:01 07:39 Temperature 98.3 F 97.8 F Pulse Rate 70 68 Respiratory 20 18 Rate Blood Pressure 159/83 165/76 O2 Sat by Pulse 97 94 Oximetry 06/02/19 07:55 Temperature Pulse Rate Respiratory 18 Rate Blood Pressure O2 Sat by Pulse 94 Oximetry - General Appearance General appearance: well-developed, well-nourished, appears stated age EENT: ATNC, PERRL, mucous membranes moist Neck: no JVD Respiratory: Present: Clear to Ascultation Cardiology: regular, S1S2 Gastrointestinal: normoactive bowel sounds Integumentary: no rash, other (no edema ) Neurologic: no focal deficit, alert and oriented x3, strength 5/5, CN 3-12 intact Psychiatric: mood/affect appropriate, cooperative - Lab 06/01/19 03:17 06/01/19 03:17 Most recent lab results Calcium 8.4 mg/dL (8.4-10.2) 06/01/19 03:17 Phosphorus 9.00 mg/dL (2.5-4.5) H 05/31/19 12:50 Medications & Allergies - Medications Allergies/Adverse Reactions: Allergies No Known Allergies Allergy (Verified 05/31/19 12:37) Home Medications: Home Medications Medication Instructions Recorded Confirmed Last Taken Type Aspirin [Aspirin BABY CHEW TAB] 81 mg PO QDAY #30 tab.chew 05/20/17 09/28/19 07/10/17 07:00 Rx Metoprolol [Lopressor TAB] 50 mg PO Q12HR #60 tablet 01/20/17 05/31/19 03/12/17 07:00 Rx NIFEdipine XL [Procardia Xl] 30 mg PO Q12HR #60 tablet 01/20/17 05/31/19 03/12/17 07:15 Rx Furosemide [Lasix TAB] 80 mg PO DAILY 03/01/17 05/31/19 02/23/17 History Acetaminophen [Acetaminophen TAB] 650 mg PO Q4H PRN #7 day 07/24/17 05/31/19 Unknown Rx DOXYCYCLINE Hyclate [Vibramycin 100 mg PO Q12HR #7 day 07/24/17 05/31/19 Unknown Rx CAP] levoFLOXacin [Levaquin] 250 mg PO Q48H #7 dose 07/24/17 05/31/19 Unknown Rx Sulfamethoxazole/Trimethoprim 1 each PO DAILY #7 tablet 09/07/18 05/31/19 Unknown Rx [Bactrim DS TAB] Active Medications: Generic Name Dose Route Start Last Admin Trade Name Freq PRN Reason Stop Dose Admin Acetaminophen 650 mg 06/01/19 07:15 Tylenol PO Q4H PRN Pain MILD(1-3)/Fever >100.5/ARMAS Aspirin 81 mg 06/01/19 10:00 06/01/19 10:18 Baby Aspirin PO 81 mg QDAY DELANO Administration Famotidine 10 mg 06/01/19 10:00 06/01/19 21:08 Pepcid PO 10 mg BID DELANO Administration Furosemide 80 mg 06/01/19 10:00 06/01/19 10:18 Lasix PO 80 mg DAILY DELANO Administration Heparin Sodium (Porcine) 5,000 unit 05/31/19 22:00 06/01/19 21:19 Heparin SUB-Q 5,000 unit Q12HR DELANO Administration Hydromorphone HCl 0.5 mg 06/01/19 07:15 Dilaudid IV Q3H PRN Pain , Severe (7-10) Sodium Chloride 100 mls @ 999 mls/hr 05/31/19 14:07 Nacl 0.9% IV AUGUST PRN Hypotension Sodium Chloride 100 mls @ 999 mls/hr 06/02/19 09:14 Nacl 0.9% IV AUGUST PRN Hypotension Metoprolol Tartrate 50 mg 06/01/19 10:00 06/01/19 21:09 Lopressor PO 50 mg Q12HR DELANO Administration Nifedipine 30 mg 06/01/19 10:00 06/01/19 21:09 Procardia Xl PO 30 mg Q12HR DELANO Administration Ondansetron HCl 4 mg 05/31/19 19:18 Zofran IV Q8H PRN Nausea And Vomiting Oxycodone/Acetaminophen 1 tab 06/01/19 07:15 Percocet 5/325 PO Q6H PRN Pain, Moderate (4-6) Sodium Chloride 10 ml 06/01/19 10:00 06/01/19 22:47 Sodium Chloride Flush Syringe 10 Ml IV Not Given BID DELANO Sodium Chloride 10 ml 06/01/19 07:15 Sodium Chloride Flush Syringe 10 Ml IV PRN PRN LINE FLUSH
[2019-06-02] MEDS: METOPROLOL TARTRATE 50 MG TAB PO SCH (10:27)
[2019-06-02 10:44] LABS: Basophils # (Auto) 0.1 K/mm3 (0.0-0.1); Basophils % (Auto) 0.8 % (0.0-1.8); Eosinophils # (Auto) 0.3 K/mm3 (0.0-0.4); Eosinophils % (Auto) 3.4 % (0.0-4.3); Hematocrit 31.4 % (35.5-45.6); Hemoglobin 10.5 gm/dl (11.8-15.2); Lymphocytes # (Auto) 1.3 K/mm3 (1.2-5.4); Lymphocytes % (Auto) 16.2 % (13.4-35.0); Mean Corpuscular HGB Conc 34 % (32-34); Mean Corpuscular Volume 95 fl (84-94); Monocytes # (Auto) 0.8 K/mm3 (0.0-0.8); Monocytes % (Auto) 10.2 % (0.0-7.3); Platelet Count 213 K/mm3 (140-440); Red Blood Count 3.29 M/mm3 (3.65-5.03); Red Cell Distribution Width 14.9 % (13.2-15.2)
[2019-06-02 10:47] LABS: Albumin 3.6 g/dL (3.9-5); Calcium 8.9 mg/dL (8.4-10.2)
--- NOTE | 2019-06-02 14:25 | Discharge Summary ---
Providers - Providers Date of Admission: 05/31/19 14:22 Date of discharge: 06/02/19 Attending physician: PATIENCE BRIONES 05/31/19 13:44 Consult to Physician [CONS] Urgent Comment: Consulting Provider: ISIDORO ZAVALA Physician Instructions: Reason For Exam: ESRD needs HD Primary care physician: RALPH ALDRICH Hospitalization Reason for admission: Acute hyperkalemia/fluid overload/noncompliance Condition: Stable Pertinent studies: CXR Hospital course: 73 yo male patent with past medical history of hypertension, chronic diastolic HF, ESRD on HD, was admtted through ER with complaints of generalized malaise and weakness along with worsening b/l LE edema after missing HD for more than 1 week, since he was " tired " to continues dialysis. however since above symptoms got worse pt decided to come to the hospital. Pt denies fever, chills, n/vd, CP, SOB, palpitations, abdominal pain, dysuria. Initial w/u consistant with hyperkalemia, acute fluid overload,evaluated by solar sales energy advisor,has emergency hemodalysis and HD per schedule.Patient conselled to comply with HD,medcations and f/u visists. Today patient is comfortable,no new complaints,vital signs stable,physical exam unremarkable. Cleared for discharge and f/u per schedule. Stable at discharge. Discharge Diagnosis --Hyperkalemia; present on admission Corrected, monitor lites, HD per schedule --Acute fluid overload /noncompliance with dialysis Patient missed hemodialysis for 10 days Stat hemodialysis, strongly advised competence --End-stage renal disease; on hemodialysis Nephrology consulted, HD per schedule --Hypertension; moderate control Continue current antihypertensives and when necessary medications --Anemia of chronic kidney disease; Closely monitor H&H and transfuse as needed --Medical noncompliance; counseling Advised to adhere to hemodialysis per schedule --DVT prophylaxis; heparin renal dose Stable at dscharge Disposition: DC- TO HOME OR SELFCARE Time spent for discharge: 32 min Core Measure Documentation - Palliative Care Palliative Care/ Comfort Measures: Not Applicable - Core Measures Any of the following diagnoses?: none Exam - Constitutional Vitals: Temp Pulse Resp BP Pulse Ox 97.8 F 91 H 18 160/79 94 06/02/19 10:40 06/02/19 14:16 06/02/19 10:40 06/02/19 14:16 06/02/19 10:00 General appearance: Present: no acute distress, well-nourished - EENT Eyes: Present: PERRL, EOM intact - Neck Neck: Present: supple, normal ROM - Respiratory Respiratory effort: normal Respiratory: bilateral: diminished, negative: rales, rhonchi, wheezing - Cardiovascular Rhythm: regular Heart Sounds: Present: S1 & S2 - Extremities Extremities: no ischemia, No edema - Abdominal General gastrointestinal: Present: soft, non-tender, non-distended, normal bowel sounds - Integumentary Integumentary: Present: clear, warm - Musculoskeletal Musculoskeletal: strength equal bilaterally, generalized weakness - Psychiatric Psychiatric: appropriate mood/affect - Neurologic Neurologic: moves all extremities Plan Activity: no restrictions Diet: renal Additional Instructions: f/u renal and HD at [facility]. Advised to comply with meds and HD Follow up with: REBECCA GONSALVES MD [Referring] - 3-5 Days Prescriptions: Metoprolol [Lopressor TAB] 50 mg PO Q12HR #60 tablet
[2019-06-02 15:17] VITALS: BP 153/69
== END 2019-06-02 15:35 | disposition home or self-care (01) | DRG 291 ==
LOC: ED 12:18 → 2B-ACE 14:22 → ED 15:08
PROVIDERS: ADMIT Internal Medicine; ATTEND Internal Medicine
PROC: 5A1D70Z Performance of Urinary Filtration, Intermittent, Less than 6 Hours Per Day (ICD-10-PCS; principal; 2019-05-31)
PROC: 5A1D70Z Performance of Urinary Filtration, Intermittent, Less than 6 Hours Per Day (ICD-10-PCS; 2019-06-02)
DX: I13.2 Hypertensive heart and chronic kidney disease with heart failure and with stage 5 chronic kidney disease, or end stage renal disease (principal); N18.6 End stage renal disease; I50.43 Acute on chronic combined systolic (congestive) and diastolic (congestive) heart failure; N17.9 Acute kidney failure, unspecified; D63.1 Anemia in chronic kidney disease; E87.5 Hyperkalemia; Z99.2 Dependence on renal dialysis; Z86.73 Personal history of transient ischemic attack (TIA), and cerebral infarction without residual deficits; Z82.49 Family history of ischemic heart disease and other diseases of the circulatory system; Z79.82 Long term (current) use of aspirin; Z95.828 Presence of other vascular implants and grafts; Z91.19 Patient's noncompliance with other medical treatment and regimen; Z71.89 Other specified counseling; Z91.15 Patient's noncompliance with renal dialysis
CPT/HCPCS: 36415; 71045; 80048; 80053; 80074; 80076; 83036; 83690; 84100; 84132; 85025; 93005; 93010; 96365; 96375; G0378; J0610; J1630; J1644; J1815

== ENCOUNTER 2019-07-10 15:44 | Observation (INO) | payer MEDICARE ==
--- NOTE | 2019-07-10 16:30 | Emergency Department Report ---
Blank Doc - Documentation Documentation: 73-year-old male that presents with left hip pain. Denies any trauma. This initial assessment/diagnostic orders/clinical plan/treatment(s) is/are subject to change based on patient's health status, clinical progression and re- assessment by fellow clinical providers in the ED. Further treatment and workup at subsequent clinical providers discretion. Patient/guardians urged not to elope from the ED as their condition may be serious if not clinically assessed and managed. Initial orders include: 1- Patient sent to [facility] for further evaluation and treatment 2- xrays
[2019-07-10 16:34] VITALS: BP 152/77
--- NOTE | 2019-07-10 17:46 | XRay Report ---
Left hip 2 views INDICATION: Left hip pain. IMPRESSION: No fracture or subluxation of the left hip is identified. Osteopenia of the left hip. Mil d degenerative changes of the left hip. Signer Name: Sathish Valdez MD Signed: 07/10/2019 5:42 PM Workstation Name: [id number]
[2019-07-10] MEDS ORDERED: ONDANSETRON 4 MG ODT TAB PO ONE (18:30)
--- NOTE | 2019-07-10 18:57 | Emergency Department Report ---
HPI - General Chief Complaint: Extremity Problem,Nontraumatic Time Seen by Provider: 07/10/19 16:29 - HPI HPI: 73-year-old male presents to the emergency department with the initial complaint of some left hip pain. He says it has been going on for many months, at least 6 months. It radiates down to the top of his leg. No swelling of the leg, rash, lesions. He denies any recent fall or any obvious injury or inciting event. The patient has a past medical history of CHF, hypertension and end-stage renal disease. He is on dialysis but has not gotten dialysis in about 3 weeks as he says he "does not want to do it anymore. Patient has a history of a left inguinal hernia but denies it being a problem for him. It is not swollen, incarcerated, strangulated. Just as we were discussing the patient's left hip x-ray results and possible disposition, the told me that the patient has been having a lot of nausea and vomiting. She says that this goes on when he does not get dialysis, which she has not had in the past 3 weeks. He has a primary care physician but has not seen them in over one year. Normally follows up with the supply service worker, Dr. Francisco. ED Past Medical Hx - Past Medical History Previous Medical History?: Yes Hx Hypertension: Yes Hx Heart Attack/AMI: No Hx Congestive Heart Failure: Yes Hx Liver Disease: No Hx Renal Disease: Yes (HD T TH Sat) Hx HIV: No Additional medical history: TIA 2015, anemia - Surgical History Past Surgical History?: Yes Additional Surgical History: Left arm fistula - Social History Smoking Status: Former Smoker Substance Use Type: None - Medications Home Medications: Home Medications Medication Instructions Recorded Confirmed Last Taken Type Aspirin [Aspirin BABY CHEW TAB] 81 mg PO QDAY #30 tab.chew 01/20/17 06/23/19 06/22/19 Rx Acetaminophen [Acetaminophen TAB] 650 mg PO Q4H PRN #7 day 07/24/17 06/23/19 Unknown Rx Metoprolol [Lopressor TAB] 50 mg PO Q12HR #60 tablet 06/02/19 06/23/19 06/22/19 08:00 Rx ALPRAZolam [Xanax TAB] 0.25 mg PO Q12H PRN #10 tablet 06/26/19 Unknown Rx Pantoprazole [Protonix TAB] 40 mg PO DAILY #30 tablet 06/26/19 Unknown Rx Zolpidem [Ambien] 5 mg PO QHS PRN #7 tablet 06/26/19 Unknown Rx hydrALAZINE [Apresoline TAB] 25 mg PO Q8HR #90 tablet 06/26/19 Unknown Rx ED Review of Systems ROS: Stated complaint: LFT HIP PAIN/HERNIA Other details as noted in HPI Comment: All other systems reviewed and negative Constitutional: denies: chills, fever Respiratory: denies: cough, shortness of breath Cardiovascular: denies: chest pain, palpitations Gastrointestinal: nausea, vomiting Musculoskeletal: arthralgia. denies: joint swelling Neurological: denies: headache, weakness, numbness, paresthesias Physical Exam - Physical Exam Vital Signs: Vital Signs 07/10/19 16:29 Temperature 97.4 F L Pulse Rate 84 Respiratory 20 Rate Blood Pressure 152/77 O2 Sat by Pulse 98 Oximetry Physical Exam: GENERAL: The patient is well-developed well-nourished. HENT: Normocephalic. Atraumatic. Patient has moist mucous membranes. EYES: Extraocular motions are intact. NECK: Supple. Trachea is midline. CHEST/LUNGS: Clear to auscultation. There is no respiratory distress noted. HEART/CARDIOVASCULAR: Regular. There is no tachycardia. There is no murmur. ABDOMEN: Abdomen is soft, nontender. Patient has normal bowel sounds. There is no abdominal distention. SKIN: Skin is warm and dry. NEURO: The patient is awake, alert, and oriented. The patient is cooperative. The patient has no focal neurologic deficits. Normal speech. MUSCULOSKELETAL: There is some tenderness to palpation of the left hip but no obvious deformity. here is no limitation range of motion. There is no evidence of acute injury. ED Course Vital Signs 07/10/19 16:29 Temperature 97.4 F L Pulse Rate 84 Respiratory 20 Rate Blood Pressure 152/77 O2 Sat by Pulse 98 Oximetry - Consultations Consultation #1: 07/10/19 20:21 I spoke with the supply service worker on for Dr. Francisco, Dr. Hernandez, who will set the patient up for dialysis tomorrow. ED Medical Decision Making - Lab Data Result diagrams: 07/10/19 18:48 07/10/19 18:48 - Radiology Data Radiology results: image reviewed interpreted by me: X-ray of the left hip does not show any fracture, dislocation or any acute process. Abdominal x-ray shows nonspecific nonobstructive bowel gas - Medical Decision Making This patient initially presented with the complaint of left hip pain. An x-ray was done of the left hip that does not show any fracture, dislocation, or any other acute process. While he was here, his started mentioning that he has been having some significant nausea and vomiting. The patient did vomit while in my presence. They let me know that he has been noncompliant with his dialysis and has not been dialyzed in the past 2-3 weeks. Labs were obtained that showed uremia with a BUN of close to 170, creatinine of 22 and a GFR of 2. There is only mild hyperkalemia. I spoke with the supply service worker to agrees with the plan for admission and the patient will get dialysis starting tomorrow. I spoke with the hospitalist service about admission but in the meantime the patient eloped from the emergency department. Critical Care Time: No Critical care attestation.: If time is entered above; I have spent that time in minutes in the direct care of this critically ill patient, excluding procedure time. ED Disposition Clinical Impression: Uremia, ESRD on hemodialysis, Nausea & vomiting, Hyperkalemia Disposition: ELOPED Is pt being admited?: No Condition: Fair Time of Disposition: 20:21
--- NOTE | 2019-07-10 19:00 | XRay Report ---
ABDOMEN 1 VIEW(S) INDICATION / CLINICAL INFORMATION: Abd pain. COMPARISON: None available. FINDINGS: TUBES / LINES: None. BOWEL GAS PATTERN: No significant abnormality. FREE AIR / EXTRALUMINAL GAS: None seen. ADDITIONAL FINDINGS: No significant additional findings. IMPRESSION: 1. No significant abnormality. Signer Name: Sathish Valdez MD Signed: 07/10/2019 6:56 PM Workstation Name: [id number]
[2019-07-10 19:17] LABS: Basophils # (Auto) 0.1 K/mm3 (0.0-0.1); Basophils % (Auto) 0.6 % (0.0-1.8); Eosinophils # (Auto) 0.3 K/mm3 (0.0-0.4); Eosinophils % (Auto) 3.2 % (0.0-4.3); Hematocrit 24.3 % (35.5-45.6); Hemoglobin 8.1 gm/dl (11.8-15.2); Lymphocytes # (Auto) 1.1 K/mm3 (1.2-5.4); Lymphocytes % (Auto) 12.7 % (13.4-35.0); Mean Corpuscular HGB Conc 33 % (32-34); Mean Corpuscular Volume 97 fl (84-94); Monocytes # (Auto) 0.8 K/mm3 (0.0-0.8); Monocytes % (Auto) 8.9 % (0.0-7.3); Platelet Count 198 K/mm3 (140-440); Red Blood Count 2.51 M/mm3 (3.65-5.03); Red Cell Distribution Width 14.8 % (13.2-15.2)
[2019-07-10 19:32] LABS: Albumin 3.4 g/dL (3.9-5); Calcium 9.1 mg/dL (8.4-10.2)
== END 2019-07-10 22:50 | disposition left against medical advice (07) ==
LOC: ED 15:44 → 2B-ACE 19:30
PROVIDERS: ADMIT Internal Medicine; ATTEND Internal Medicine
DX: I50.9 Heart failure, unspecified (principal); I13.0 Hypertensive heart and chronic kidney disease with heart failure and stage 1 through stage 4 chronic kidney disease, or unspecified chronic kidney disease; N18.6 End stage renal disease; Z99.2 Dependence on renal dialysis; Z86.73 Personal history of transient ischemic attack (TIA), and cerebral infarction without residual deficits; D64.9 Anemia, unspecified; Z87.891 Personal history of nicotine dependence; Z79.82 Long term (current) use of aspirin; Z79.899 Other long term (current) drug therapy; N19 Unspecified kidney failure; R11.2 Nausea with vomiting, unspecified; E87.5 Hyperkalemia
CPT/HCPCS: 36415; 73502; 74019; 80053; 83690; 85025; 99284; G0378; Q0162

== ENCOUNTER 2019-07-12 07:54 | Observation (INO) | payer MEDICARE ==
[2019-07-12 08:49] LABS: Basophils # (Auto) 0.1 K/mm3 (0.0-0.1); Basophils % (Auto) 0.7 % (0.0-1.8); Eosinophils # (Auto) 0.3 K/mm3 (0.0-0.4); Eosinophils % (Auto) 3.6 % (0.0-4.3); Hematocrit 22.3 % (35.5-45.6); Hemoglobin 7.6 gm/dl (11.8-15.2); Lymphocytes # (Auto) 0.9 K/mm3 (1.2-5.4); Lymphocytes % (Auto) 9.4 % (13.4-35.0); Mean Corpuscular HGB Conc 34 % (32-34); Mean Corpuscular Volume 96 fl (84-94); Monocytes # (Auto) 0.8 K/mm3 (0.0-0.8); Monocytes % (Auto) 8.8 % (0.0-7.3); Platelet Count 200 K/mm3 (140-440); Red Blood Count 2.32 M/mm3 (3.65-5.03); Red Cell Distribution Width 14.7 % (13.2-15.2)
--- NOTE | 2019-07-12 09:04 | Emergency Department Report ---
HPI - General Chief Complaint: Medical Clearance Time Seen by Provider: 07/12/19 08:54 - HPI HPI: 73-year-old male presents to the emergency department with complaint of generalized abdominal pain, nausea, vomiting, hip pain and needing dialysis. I saw this patient in this emergency department 2 nights ago for similar symptoms but he eloped just as admission orders were placed. He has a history of end-stage renal disease on hemodialysis. He has not gotten dialysis for about 3 weeks, the last time being June 26 when he was at this hospital for a different admission. He also has a history of hypertension and CHF. He says that his symptoms have continued since he eloped and says he is now ready for treatment and probable admission. His batch attendant is Dr. Francisco. He does not have a primary care physician. He has left upper extremity dialysis access. ED Past Medical Hx - Past Medical History Hx Hypertension: Yes Hx Heart Attack/AMI: No Hx Congestive Heart Failure: Yes Hx Liver Disease: No Hx Renal Disease: Yes (HD Sun) Hx HIV: No Additional medical history: TIA 2014, anemia - Surgical History Additional Surgical History: Left arm fistula - Social History Smoking Status: Never Smoker Substance Use Type: None - Medications Home Medications: Home Medications Medication Instructions Recorded Confirmed Last Taken Type Aspirin [Aspirin BABY CHEW TAB] 81 mg PO QDAY #30 tab.chew 01/20/17 07/12/19 06/22/19 Rx Acetaminophen [Acetaminophen TAB] 650 mg PO Q4H PRN #7 day 07/24/17 07/12/19 Unknown Rx Metoprolol [Lopressor TAB] 50 mg PO Q12HR #60 tablet 06/02/19 07/12/19 06/22/19 08:00 Rx ALPRAZolam [Xanax TAB] 0.25 mg PO Q12H PRN #10 tablet 06/26/19 07/12/19 Unknown Rx Pantoprazole [Protonix TAB] 40 mg PO DAILY #30 tablet 06/26/19 07/12/19 Unknown Rx Zolpidem [Ambien] 5 mg PO QHS PRN #7 tablet 06/26/19 07/12/19 Unknown Rx hydrALAZINE [Apresoline TAB] 25 mg PO Q8HR #90 tablet 06/26/19 07/12/19 Unknown Rx ED Review of Systems ROS: Stated complaint: NO DIALYSIS IN 7 DAYS Other details as noted in HPI Comment: All other systems reviewed and negative Constitutional: denies: chills, fever Eyes: denies: eye pain, vision change ENT: denies: ear pain, throat pain Respiratory: denies: cough, shortness of breath Cardiovascular: denies: chest pain, edema Gastrointestinal: abdominal pain, nausea, vomiting Musculoskeletal: arthralgia. denies: joint swelling Neurological: denies: headache, numbness, paresthesias Physical Exam - Physical Exam Vital Signs: Vital Signs 07/12/19 08:03 Temperature 97.7 F Pulse Rate 78 Respiratory 16 Rate Blood Pressure 167/109 O2 Sat by Pulse 96 Oximetry Physical Exam: GENERAL: The patient is well-developed well-nourished. HENT: Normocephalic. Atraumatic. Patient has moist mucous membranes. EYES: Extraocular motions are intact. NECK: Supple. Trachea is midline. CHEST/LUNGS: Clear to auscultation. There is no respiratory distress noted. HEART/CARDIOVASCULAR: Regular. There is no tachycardia. There is no murmur. ABDOMEN: Abdomen is soft. Mild generalized tenderness to palpation. No guarding.. Patient has normal bowel sounds. There is no abdominal distention. SKIN: Skin is warm and dry. NEURO: The patient is awake, alert, and oriented. The patient is cooperative. The patient has no focal neurologic deficits. Normal speech. MUSCULOSKELETAL: There is no tenderness or deformity. There is no evidence of acute injury. There is a patent left upper extremity dialysis fistula. ED Course Vital Signs 07/12/19 08:03 Temperature 97.7 F Pulse Rate 78 Respiratory 16 Rate Blood Pressure 167/109 O2 Sat by Pulse 96 Oximetry - Consultations Consultation #1: 07/12/19 09:52 I spoke with the patient's batch attendant, Dr Francisco, who will arrange for the pat ient to get dialysis today. He asked for the patient to be given the medications of the hyperkalemia cocktail except for the kayexalate. The patient will be admitted to the hospitalist service. ED Medical Decision Making - Lab Data Result diagrams: 07/12/19 08:29 07/12/19 08:29 - Radiology Data Radiology results: image reviewed interpreted by me: Chest x-ray does not show any acute process. There are no pleural effusions, obvious pneumonia and there is no pneumothorax. Abdominal x-ray shows nonspecific nonobstructive bowel gas - Medical Decision Making This patient returns with complaint of some abdominal pain, nausea and needing dialysis. His hemoglobin is down to 7.6 which is anemia of chronic kidney disease. His BUN is about 190 and his potassium is 6.4. The patient was given the hyperkalemia cocktail minus the Kayexalate. Nephrology was contacted and consulted. The patient was accepted for admission by the hospitalist service. - Differential Diagnosis Uremia, CHF, Colitis, Food poisoning, Hyperkalemia Critical Care Time: No Critical care attestation.: If time is entered above; I have spent that time in minutes in the direct care of this critically ill patient, excluding procedure time. ED Disposition Clinical Impression: ESRD needing dialysis, Uremia, Hyperkalemia Hypertension Qualifiers: Hypertension type: essential hypertension Qualified Code(s): I10 - Essential (primary) hypertension Disposition: OP ADMIT IP TO THIS HOSP Is pt being admited?: Yes Condition: Fair Time of Disposition: 11:06
[2019-07-12 09:14] LABS: Albumin 3.7 g/dL (3.9-5); Calcium 8.7 mg/dL (8.4-10.2)
[2019-07-12] MEDS ORDERED: INSULIN REGULAR, HUMAN 100 UNITS/1 ML IV ONE (09:42)
[2019-07-12] MEDS ORDERED: ALBUTEROL 2.5 MG/3 ML NEBU IH ONE (09:42)
[2019-07-12] MEDS ORDERED: DEXTROSE 50% IN WATER (25GM) 50 ML SYRINGE IV ONE ×2 (09:42→10:28)
[2019-07-12] MEDS ORDERED: HEPARIN 10,000 UNITS/10 ML VIAL IV PRN (09:55)
[2019-07-12] MEDS ORDERED: SODIUM CHLORIDE 0.9% 100 ML IV PRN (09:55)
[2019-07-12] MEDS ORDERED: CALCIUM GLUCONATE 1,000 MG in SODIUM CHLORIDE 0.9% 100 ML IV ONE (10:00)
[2019-07-12] MEDS ORDERED: ZOLPIDEM 5 MG TAB PO PRN (10:10)
[2019-07-12] MEDS ORDERED: ACETAMINOPHEN 325 MG TAB PO PRN (10:10)
[2019-07-12] MEDS ORDERED: ALPRAZolam 0.25 MG TAB PO PRN (10:10)
--- NOTE | 2019-07-12 10:17 | History and Physical Report ---
History of Present Illness Date of examination: 07/12/19 Date of admission: 07/12/19 09:45 Chief complaint: Patient presented for dialysis History of present illness: 73-year-old -[place] Citizen woman with past medical history significant for ESRD on hemodialysis, hypertension presented to the emergency department to get hemodialysis. Patient didn't get hemodialysis for the last 3 weeks. Patient stated he doesn't want to get dialysis and he is feeling okay. Today he is complaining mild abdominal cramp and he agreed for dialysis and presented to the emergency department. In the emergency department patient was hyperkalemic and blood pressure was high. Dr. Sahu was consulted and he is going to dialyze him today, recommend hyperkalemia cocktail except Kayexalate. REVIEW OF SYSTEMS: GENERAL: no weight change, no fatigue, no fever HEAD: no head ache EYES: no blurry vision, no acute visual loss EARS: no hearing loss, no discharge, no earache NOSE: no stuffiness, no sneezing, no discharge MOUTH, THROAT AND NECK: no bleeding gums, no sore throat, no swollen neck CARDIAC: no palpitations, no dyspnea on exertion, no orthopnea, no PND, no edema, no chest pain RESPIRATORY: no shortness of breath, no wheeze, no cough, no sputum, no h emoptysis, no asthma GI: mild abdominal pain. URINARY: No urgency, hematuria, dysuria or frequency. MUSCULOSKELETAL: no muscle weakness, no pain, no joint stiffness NEUROLOGIC: no loss of sensation/numbness, no tingling, no tremors, no weakness/paralysis HEMATOLOGIC: no anemia, no easy bruising SKIN: no rashes ENDOCRINE: no heat/cold intolerance, no polyuria, no polydipsia, no thyroid problems, no diabetes PSYCHIATRIC: no anxiety, no depression, no suicidal ideations Past History Past Medical History: hypertension, renal failure Past Surgical History: No surgical history Social history: full code. denies: smoking, alcohol abuse, prescription drug abuse, IV drug use Family history: no significant family history Medications and Allergies Allergies Allergy/AdvReac Type Severity Reaction Status Date / Time No Known Allergies Allergy Verified 05/31/19 12:37 Home Medications Medication Instructions Recorded Confirmed Last Taken Type Aspirin [Aspirin BABY CHEW TAB] 81 mg PO QDAY #30 tab.chew 01/20/17 07/12/19 06/22/19 Rx Acetaminophen [Acetaminophen TAB] 650 mg PO Q4H PRN #7 day 07/24/17 07/12/19 Unknown Rx Metoprolol [Lopressor TAB] 50 mg PO Q12HR #60 tablet 06/02/19 07/12/19 06/22/19 08:00 Rx ALPRAZolam [Xanax TAB] 0.25 mg PO Q12H PRN #10 tablet 06/26/19 07/12/19 Unknown Rx Pantoprazole [Protonix TAB] 40 mg PO DAILY #30 tablet 06/26/19 07/12/19 Unknown Rx Zolpidem [Ambien] 5 mg PO QHS PRN #7 tablet 06/26/19 07/12/19 Unknown Rx hydrALAZINE [Apresoline TAB] 25 mg PO Q8HR #90 tablet 06/26/19 07/12/19 Unknown Rx Active Meds: Active Medications Acetaminophen (Tylenol) 650 mg PO Q4H PRN PRN Reason: Pain MILD(1-3)/Fever >100.5/ARMAS Alprazolam (Xanax) 0.25 mg PO Q12H PRN PRN Reason: Anxiety Aspirin (Baby Aspirin) 81 mg PO QDAY [facility] Epoetin Gulshan (Procrit) 10,000 unit IV AUGUST PRN PRN Reason: hemodialysis Heparin Sodium (Porcine) (Heparin 10,000 Units/10 Ml) 1,000 unit IV AUGUST PRN PRN Reason: hemodialysis Hydralazine HCl (Apresoline) 25 mg PO Q8HR [facility] Sodium Chloride (Nacl 0.9%) 100 mls @ 999 mls/hr IV AUGUST PRN PRN Reason: Hypotension Metoprolol Tartrate (Metoprolol) 50 mg PO Q12HR [facility]ANO Pantoprazole Sodium (Protonix) 40 mg PO DAILY [facility] Exam - Physical Exam Narrative exam: Not in cardiopulmonary distress. The patient appeared well nourished and normally developed. Vital signs as documented. Head exam is unremarkable. No scleral icterus . Neck is without jugular venous distension, thyromegaly, or carotid bruits. Lungs are clear to auscultation. Cardiac exam reveals regular rate and Rhythm. Abdominal exam reveals normal bowel sounds, nontender, no organomegaly. Extremities are nonedematous and both femoral and pedal pulses are normal. SUBSTATION OPERATOR: Alert and oriented 3. No focal weakness. - Constitutional Vitals: Temp Pulse Resp BP Pulse Ox 97.7 F 78 16 167/109 96 07/12/19 08:03 07/12/19 08:03 07/12/19 08:03 07/12/19 08:03 07/12/19 08:03 Results - Labs CBC & Chem 7: 07/12/19 08:29 07/12/19 08:29 Labs: Laboratory Last Values WBC 9.2 K/mm3 (4.5-11.0) 07/12/19 08:29 RBC 2.32 M/mm3 (3.65-5.03) L 07/12/19 08:29 Hgb 7.6 gm/dl (11.8-15.2) L 07/12/19 08:29 Hct 22.3 % (35.5-45.6) L 07/12/19 08:29 MCV 96 fl (84-94) H 07/12/19 08:29 MCH 33 pg (28-32) H 07/12/19 08: MCHC 34 % (32-34) 07/12/19 08:29 RDW 14.7 % (13.2-15.2) 07/12/19 08:29 Plt Count 200 K/mm3 (140-440) 07/12/19 08:29 Lymph % (Auto) 9.4 % (13.4-35.0) L 07/12/19 08:29 [place] % (Auto) 8.8 % (0.0-7.3) H 07/12/19 08:29 Eos % (Auto) 3.6 % (0.0-4.3) 07/12/19 08:29 Baso % (Auto) 0.7 % (0.0-1.8) 07/12/19 08:29 Lymph # 0.9 K/mm3 (1.2-5.4) L 07/12/19 08:29 [place] # 0.8 K/mm3 (0.0-0.8) 07/12/19 08:29 Eos # 0.3 K/mm3 (0.0-0.4) 07/12/19 08:29 Baso # 0.1 K/mm3 (0.0-0.1) 07/12/19 08:29 Seg Neutrophils % 77.5 % (40.0-70.0) H 07/12/19 08:29 Seg Neutrophils # 7.1 K/mm3 (1.8-7.7) 07/12/19 08:29 Sodium 141 mmol/L (137-145) 07/12/19 08:29 Potassium 6.3 mmol/L (3.6-5.0) H* 07/12/19 08:29 Chloride 92.8 mmol/L (98-107) L 07/12/19 08:29 Carbon Dioxide 16 mmol/L (22-30) L 07/12/19 08:29 Anion Gap 38 mmol/L 07/12/19 08:29 BUN 189 mg/dL (9-20) H 07/12/19 08:29 Creatinine 23.0 mg/dL (0.8-1.5) H 07/12/19 08:29 Estimated GFR 2 ml/min 07/12/19 08:29 BUN/Creatinine Ratio 8 % 07/12/19 08:29 Glucose 78 mg/dL (75-100) 07/12/19 08:29 Calcium 8.7 mg/dL (8.4-10.2) 07/12/19 08:29 Total Bilirubin 0.40 mg/dL (0.1-1.2) 07/12/19 08:29 AST 9 units/L (5-40) 07/12/19 08:29 ALT 11 units/L (7-56) 07/12/19 08:29 Alkaline Phosphatase 87 units/L (35-129) 07/12/19 08:29 Total Protein 7.0 g/dL (6.3-8.2) 07/12/19 08:29 Albumin 3.7 g/dL (3.9-5) L 07/12/19 08:29 Albumin/Globulin Ratio 1.1 % 07/12/19 08:29 Assessment and Plan Assessment and plan: ESRD on HD - patient didn't get HD for 3 weeks - Nephrology consulted and will get HD today Hyperkalemia - Will get hyperkalemia coctail HTN - resume home medications Abdominal pain - due to uremia - continue with home medications DVT prophylaxis - on heparin Disposition - Admit to medical floor for observation Advance Directives: Yes VTE prophylaxis?: Chemical Plan of care discussed with patient/family: Yes
[2019-07-12] MEDS ORDERED: INSULIN REGULAR, HUMAN 100 UNITS/1 ML ONE (10:30)
--- NOTE | 2019-07-12 10:37 | XRay Report ---
ABDOMEN 4 VIEW(S) INDICATION / CLINICAL INFORMATION: Abd pain. COMPARISON: Abdomen x-ray 07/10/2019 FINDINGS: TUBES / LINES: None. BOWEL GAS PATTERN: No significant abnormality. FREE AIR / EXTRALUMINAL GAS: None seen. ADDITIONAL FINDINGS: There is no acute pleural or pulmonary disease on the chest x-ray. IMPRESSION: 1. No significant abnormality. Signer Name: Rex Estrada MD Signed: 07/12/2019 10:32 AM Workstation Name: [id number]
[2019-07-12] MEDS: PANTOPRAZOLE 40 MG TAB PO SCH (12:51)
[2019-07-12] MEDS: METOPROLOL TARTRATE 50 MG TAB PO SCH ×2 (12:51→21:59)
[2019-07-12] MEDS: hydrALAZINE 25 MG TAB PO SCH ×2 (13:28→21:57)
[2019-07-12] MEDS: HEPARIN 5,000 UNIT/1 ML VIAL SUB-Q SCH ×2 (13:41→21:56)
[2019-07-12] MEDS: EPOETIN ALFA 10,000 UNIT/1 ML INJ IV PRN (15:28)
--- NOTE | 2019-07-12 16:18 | Consultation ---
History of Present Illness - Reason for Consult Consult date: 07/12/19 end stage renal disease (with uremia and hyperkalemia), hyperkalemia Requesting physician: ROJAS MARTINEZ - History of Present Illness 73-year-old male who is known to me with history of hypertension and End stage renal disease on hemodialysis since January 2017. Since the last 6 weeks patient has refused to go to dialysis clinic. He was hospitalized from 06/23 till the with hyperkalemia -potassium of 6- and severe anemia -with hemoglobin of 5.7. Patient had not been receiving Erythropoetin since he did not go to the dialysis clinic. Patient was treated and discharge home but since going home he still has not gone to dialysis. Patient now presents with abdominal pain, nausea vomiting and also hip pain. Came to the emergency room 3 days ago but left against medical advice but now presented back with worsening symptoms. He stated he was ready to restart dialysis. I evaluated him on dialysis Units and patient was gain wanting to get off of Dialysis. We had a discussion about imp ortance of him staying for his dialysis and resuming dialysis treatments on a regular basis. Patient's condition has deteriorated since he stopped going for regular dialysis 6 weeks ago. Labs not showed potassium high at 6.3, bicarbonate low at 16 mmol per liter and BUN/creatinine quite elevated at 189/23 mg/dL. Hemoglobin is also low at 7.6 g/dL. Past History Past Medical History: ESRD, heart failure (diagnoses in 2015), hypertension, renal failure, stroke (in 2015) Past Surgical History: Other (AV fistula placement, permacath placement) Social history: , lives with family, full code, other (retired. Worked in housekeeping in the hospital so many years. Lives with his .). denies: smoking (quit smoking in 1998), alcohol abuse (quit drinking alcohol in 2012), prescription drug abuse, IV drug use Family history: other (mother of complications of heart disease. Does not know the cause of of his father. Sister had kidney failure was on dialysis and received a kidney transplant and is doing well.) Medications and Allergies Allergies Allergy/AdvReac Type Severity Reaction Status Date / Time No Known Allergies Allergy Verified 05/31/19 12:37 Home Medications Medication Instructions Recorded Confirmed Last Taken Type Aspirin [Aspirin BABY CHEW TAB] 81 mg PO QDAY #30 tab.chew 01/20/17 07/12/19 06/22/19 Rx Acetaminophen [Acetaminophen TAB] 650 mg PO Q4H PRN #7 day 07/24/17 07/12/19 Unknown Rx Metoprolol [Lopressor TAB] 50 mg PO Q12HR #60 tablet 06/02/19 07/12/19 06/22/19 08:00 Rx ALPRAZolam [Xanax TAB] 0.25 mg PO Q12H PRN #10 tablet 06/26/19 07/12/19 Unknown Rx Pantoprazole [Protonix TAB] 40 mg PO DAILY #30 tablet 06/26/19 07/12/19 Unknown Rx Zolpidem [Ambien] 5 mg PO QHS PRN #7 tablet 06/26/19 07/12/19 Unknown Rx hydrALAZINE [Apresoline TAB] 25 mg PO Q8HR #90 tablet 06/26/19 07/12/19 Unknown Rx Active Meds: Active Medications Acetaminophen (Tylenol) 650 mg PO Q4H PRN PRN Reason: Pain MILD(1-3)/Fever >100.5/ARMAS Alprazolam (Xanax) 0.25 mg PO Q12H PRN PRN Reason: Anxiety Aspirin (Baby Aspirin) 81 mg PO QDAY [facility] Epoetin Gulshan (Procrit) 10,000 unit IV AUGUST PRN PRN Reason: hemodialysis Last Admin: 07/12/19 15:28 Dose: 10,000 unit Documented by: Heparin Sodium (Porcine) (Heparin 10,000 Units/10 Ml) 1,000 unit IV AUGUST PRN PRN Reason: hemodialysis Last Admin: 07/12/19 15:05 Dose: 1,000 unit Documented by: Heparin Sodium (Porcine) (Heparin) 5,000 unit SUB-Q Q8HR [facility] Last Admin: 07/12/19 13:41 Dose: Not Given Documented by: Hydralazine HCl (Apresoline) 25 mg PO Q8HR [facility] Last Admin: 07/12/19 13:28 Dose: Not Given Documented by: Sodium Chloride (Nacl 0.9%) 100 mls @ 999 mls/hr IV AUGUST PRN PRN Reason: Hypotension Metoprolol Tartrate (Metoprolol) 50 mg PO Q12HR [facility] Last Admin: 07/12/19 12:51 Dose: Not Given Documented by: Pantoprazole Sodium (Protonix) 40 mg PO DAILY [facility]O Last Admin: 07/12/19 12:51 Dose: Not Given Documented by: Zolpidem Tartrate (Ambien) 5 mg PO QHS PRN PRN Reason: Sleep Review of Systems All systems: negative (as noted in history of present illness. Patient is a poor historian) Exam - Vital Signs Vital signs: Vital Signs Temp Pulse Resp BP Pulse Ox 97.7 F 78 16 167/109 96 07/12/19 08:03 07/12/19 08:03 07/12/19 08:03 07/12/19 08:03 07/12/19 08:03 - Physical Exam Narrative exam: Elderly -[place] male lying on bed in no acute distress HEENT: NCAT, pink oral mucous membrane Neck: Supple, no venous distention CVS: S1S2 RRR with no murmur, rub or gallop Chest: Clear to auscultation Abdomen: Protuberant, soft, nontender, no organomegaly, bowel sounds are present Extremities: Mild edema Skin warm and dry, no rash Neuro: Awake, speech a bit slow, no focal deficits Results - Lab Results 07/12/19 08:29 07/12/19 08:29 Most recent lab results Calcium 8.7 mg/dL (8.4-10.2) 07/12/19 08:29 Assessment and Plan - Patient Problems (1) ESRD needing dialysis Current Visit: Yes Status: Acute Plan to address problem: Urgent dialysis being done. I discussed with patient at length about importance of going for dialysis treatment to avoid potentially life-threatening hyperkalemia and other complications. Patient demonstrated understanding. We'll continue discussions while in the hospital (2) Hyperkalemia Current Visit: Yes Status: Acute Plan to address problem: Hemodialysis on a low potassium bath. We'll dialyze patient daily for 3 days (3) Uremia Current Visit: Yes Status: Acute Plan to address problem: Dialyze patient with low blood flows and for just 3 hours to avoid dialysis disequilibrium given the extremely elevated BUNs/creatinine. (4) Anemia in chronic kidney disease (CKD) Current Visit: No Status: Acute Qualifiers: Chronic kidney disease stage: on chronic dialysis Qualified Code(s): N18.6 - End stage renal disease; D63.1 - Anemia in chronic kidney disease; Z99.2 - Dependence on renal dialysis Plan to address problem: Hemoglobin low due to missed doses of erythropoietin as patient was not going to dialysis. Resume Epogen pointing on dialysis. (5) Hypertensive chronic kidney disease with stage 5 chronic kidney disease or end stage renal disease Current Visit: No Status: Acute Plan to address problem: Follow-up blood pressure on current medications (6) Metabolic acidosis Current Visit: No Status: Acute Plan to address problem: Worsening acidosis due to missed dialysis treatments. Follow-up bicarbonate with dialysis (7) Metabolic encephalopathy Current Visit: No Status: Acute Plan to address problem: Encephalopathy due to uremia. Monitor with dialysis
[2019-07-13] MEDS ORDERED: FAMOTIDINE 20 MG TAB PO ONE (00:36)
[2019-07-13 01:22] LABS: Bilirubin,Urine NEG (Negative); Blood,Urine SM (Negative); Color,Urine Yellow (Yellow); Sperm,Urine 3+ /HPF (NP); Urobilinogen,Urine < 2.0 mg/dL (<2.0)
[2019-07-13 04:32] LABS: Calcium 8.8 mg/dL (8.4-10.2)
[2019-07-13] MEDS: hydrALAZINE 25 MG TAB PO SCH ×3 (05:53→22:40)
[2019-07-13] MEDS: HEPARIN 5,000 UNIT/1 ML VIAL SUB-Q SCH ×3 (05:54→23:00)
[2019-07-13] MEDS: PANTOPRAZOLE 40 MG TAB PO SCH (09:21)
[2019-07-13] MEDS: ASPIRIN 81 MG TAB CHEW PO SCH (09:21)
[2019-07-13] MEDS: METOPROLOL TARTRATE 50 MG TAB PO SCH ×2 (09:21→22:40)
--- NOTE | 2019-07-13 10:18 | Progress Note ---
Assessment and Plan Assessment and plan: ESRD on HD with non-compliance - patient had not received HD for 3 weeks prior to admission - Continue HD per Nephrology Hyperkalemia - Resolved s/p tx Acute metabolic encephalopathy - Likely secondary to uremia - Continue to monitor clinically HTN - Currently controlled on home meds Anemia of chronic disease - Monitor H&H and transfuse as needed Metabolic acidosis -Improved, will monitor DVT prophylaxis on heparin Disposition: For d/c when medically stable and cleared by nephrology History Interval history: Pt has no new complaints, but appears confused. No reported issues overnight. Hospitalist Physical - Constitutional Vitals: Temp Pulse Resp BP Pulse Ox 98.4 F 82 18 148/81 97 07/13/19 07:15 07/13/19 10:00 07/13/19 07:15 07/13/19 07:15 07/13/19 07:15 General appearance: Present: no acute distress, well-nourished, other (alert and oriented to person only) - EENT Eyes: Present: PERRL, EOM intact ENT: hearing intact, clear oral mucosa - Neck Neck: Present: supple, normal ROM - Respiratory Respiratory effort: normal Respiratory: bilateral: CTA - Cardiovascular Rhythm: regular Heart Sounds: Present: S1 & S2 - Extremities Extremities: No edema - Abdominal General gastrointestinal: soft, non-tender, non-distended, normal bowel sounds - Integumentary Integumentary: Present: clear, warm, dry - Psychiatric Psychiatric: cooperative - Neurologic Neurologic: moves all extremities Results - Labs CBC & Chem 7: 07/12/19 08:29 07/13/19 03:49 Labs: Laboratory Last Values WBC 9.2 K/mm3 (4.5-11.0) 07/12/19 08:29 RBC 2.32 M/mm3 (3.65-5.03) L 07/12/19 08:29 Hgb 7.6 gm/dl (11.8-15.2) L 07/12/19 08:29 Hct 22.3 % (35.5-45.6) L 07/12/19 08:29 MCV 96 fl (84-94) H 07/12/19 08:29 MCH 33 pg (28-32) H 07/12/19 08:29 MCHC 34 % (32-34) 07/12/19 08:29 RDW 14.7 % (13.2-15.2) 07/12/19 08:29 Plt Count 200 K/mm3 (140-440) 07/12/19 08:29 Lymph % (Auto) 9.4 % (13.4-35.0) L 07/12/19 08:29 [place] % (Auto) 8.8 % (0.0-7.3) H 07/12/19 08:29 Eos % (Auto) 3.6 % (0.0-4.3) 07/12/19 08:29 Baso % (Auto) 0.7 % (0.0-1.8) 07/12/19 08:29 Lymph # 0.9 K/mm3 (1.2-5.4) L 07/12/19 08:29 [place] # 0.8 K/mm3 (0.0-0.8) 07/12/19 08:29 Eos # 0.3 K/mm3 (0.0-0.4) 07/12/19 08:29 Baso # 0.1 K/mm3 (0.0-0.1) 07/12/19 08:29 Seg Neutrophils % 77.5 % (40.0-70.0) H 07/12/19 08:29 Seg Neutrophils # 7.1 K/mm3 (1.8-7.7) 07/12/19 08:29 Sodium 136 mmol/L (137-145) L 07/13/19 03:49 Potassium 4.7 mmol/L (3.6-5.0) D 07/13/19 03:49 Chloride 93.7 mmol/L (98-107) L 07/13/19 03:49 Carbon Dioxide 21 mmol/L (22-30) L 07/13/19 03:49 Anion Gap 26 mmol/L 07/13/19 03:49 BUN 96 mg/dL (9-20) H 07/13/19 03:49 Creatinine 13.8 mg/dL (0.8-1.5) H 07/13/19 03:49 Estimated GFR 4 ml/min 07/13/19 03:49 BUN/Creatinine Ratio 7 % 07/13/19 03:49 Glucose 77 mg/dL (75-100) 07/13/19 03:49 POC Glucose 85 (70-105) 07/12/19 10:28 Calcium 8.8 mg/dL (8.4-10.2) 07/13/19 03:49 Total Bilirubin 0.40 mg/dL (0.1-1.2) 07/12/19 08:29 AST 9 units/L (5-40) 07/12/19 08:29 ALT 11 units/L (7-56) 07/12/19 08:29 Alkaline Phosphatase 87 units/L (35-129) 07/12/19 08:29 Total Protein 7.0 g/dL (6.3-8.2) 07/12/19 08:29 Albumin 3.7 g/dL (3.9-5) L 07/12/19 08:29 Albumin/Globulin Ratio 1.1 % 07/12/19 08:29 Urine Color Yellow (Yellow) 07/12/19 00:55 Urine Turbidity Cloudy (Clear) 07/12/19 00:55 Urine pH 6.0 (5.0-7.0) 07/12/19 00:55 Ur Specific [place] 1.025 (1.003-1.030) 07/12/19 00:55 Urine Protein 100 mg/dl mg/dL (Negative) 07/12/19 00:55 Urine Glucose (UA) 50 mg/dL (Negative) 07/12/19 00:55 Urine Ketones Neg mg/dL (Negative) 07/12/19 00:55 Urine Blood Sm (Negative) 07/12/19 00:55 Urine Nitrite Neg (Negative) 07/12/19 00:55 Urine Bilirubin Neg (Negative) 07/12/19 00:55 Urine Urobilinogen < 2.0 mg/dL (<2.0) 07/12/19 00:55 Ur Leukocyte Esterase Sm (Negative) 07/12/19 00:55 Urine WBC (Auto) 149.0 /HPF (0.0-6.0) H 07/12/19 00:55 Urine RBC (Auto) 46.0 /HPF (0.0-6.0) 07/12/19 00:55 U Epithel Cells (Auto) 2.0 /HPF (0-13.0) 07/12/19 00:55 Urine WBC Clumps 2+ /HPF 07/12/19 00:55 Urine Sperm 3+ /HPF (CORPORATION PILOT) 07/12/19 00:55 Active Medications - Current Medications Current Medications: Generic Name Dose Route Start Last Admin Trade Name Freq PRN Reason Stop Dose Admin Acetaminophen 650 mg 07/12/19 10:10 07/12/19 21:57 Tylenol PO 650 mg Q4H PRN Administration Pain MILD(1-3)/Fever >100.5/ARMAS Alprazolam 0.25 mg 07/12/19 10:10 07/13/19 00:48 Xanax PO 0.25 mg Q12H PRN Administration Anxiety Aspirin 81 mg 07/13/19 10:00 07/13/19 09:21 Baby Aspirin PO 81 mg QDAY DELANO Administration Epoetin Gulshan 10,000 unit 07/12/19 09:55 07/12/19 15:28 Procrit IV 10,000 unit AUGUST PRN Administration hemodialysis Heparin Sodium (Porcine) 1,000 unit 07/12/19 09:55 07/12/19 15:05 Heparin 10,000 Units/10 Ml IV 1,000 unit AUGUST PRN Administration hemodialysis Heparin Sodium (Porcine) 5,000 unit 07/12/19 14:00 07/13/19 05:54 Heparin SUB-Q 5,000 unit Q8HR DELANO Administration Hydralazine HCl 25 mg 07/12/19 14:00 07/13/19 05:53 Apresoline PO 25 mg Q8HR [facility]ANO Administration Sodium Chloride 100 mls @ 999 mls/hr 07/12/19 09:55 Nacl 0.9% IV AUGUST PRN Hypotension Metoprolol Tartrate 50 mg 07/12/19 11:00 07/13/19 09:21 Metoprolol PO 50 mg Q12HR DELANO Administration Pantoprazole Sodium 40 mg 07/12/19 11:00 07/13/19 09:21 Protonix PO 40 mg DAILY [facility]O Administration Zolpidem Tartrate 5 mg 07/12/19 10:10 Ambien PO QHS PRN Sleep
[2019-07-13] MEDS ORDERED: SODIUM CHLORIDE 0.9% 100 ML IV PRN (14:43)
--- NOTE | 2019-07-13 15:33 | Progress Note ---
Assessment and Plan - Patient Problems (1) ESRD needing dialysis Current Visit: Yes Status: Acute Plan to address problem: I discussed with patient at length about importance of going for dialysis treatment to avoid potentially life-threatening hyperkalemia and other complications. Patient demonstrated understanding. We'll continue discussions while in the hospital (2) Hyperkalemia Current Visit: Yes Status: Acute Plan to address problem: Potassium improved with dialysis. Continue treatment (3) Uremia Current Visit: Yes Status: Acute Plan to address problem: Secondary to missed dialysis. Dialyzing with low blood flows for a short time and slowly increase the time on dialysis to avoid dialysis disequilibrium given the extremely elevated BUNs/creatinine. (4) Anemia in chronic kidney disease (CKD) Current Visit: No Status: Acute Qualifiers: Chronic kidney disease stage: on chronic dialysis Qualified Code(s): N18.6 - End stage renal disease; D63.1 - Anemia in chronic kidney disease; Z99.2 - Dependence on renal dialysis Plan to address problem: Hemoglobin low due to missed doses of erythropoietin as patient was not going to dialysis. Resume Epogen on dialysis. (5) Hypertensive chronic kidney disease with stage 5 chronic kidney disease or end stage renal disease Current Visit: No Status: Acute Plan to address problem: Follow-up blood pressure on current medications (6) Metabolic acidosis Current Visit: No Status: Acute Plan to address problem: Worsening acidosis due to missed dialysis treatments. Follow-up bicarbonate with dialysis (7) Metabolic encephalopathy Current Visit: No Status: Acute Plan to address problem: Encephalopathy due to uremia. Monitor with dialysis Subjective Date of service: 07/13/19 Principal diagnosis: end-stage renal disease with uremia Interval history: Patient seen lying in bed on dialysis. He has no new complaints. No chest pain or shortness of breath. Objective - Exam Narrative Exam: Elderly -[place] male lying on bed in no acute distress HEENT: NCAT, pink oral mucous membrane Neck: Supple, no venous distention CVS: S1S2 RRR with no murmur, rub or gallop Chest: Clear to auscultation Abdomen: Protuberant, soft, nontender, no organomegaly, bowel sounds are present Extremities: Mild edema Skin warm and dry, no rash Neuro: Awake, speech a bit slow, no focal deficits - Vital Signs Vital signs: Vital Signs - 12hr 07/13/19 07/13/19 07/13/19 05:53 07:15 10:00 Temperature 98.4 F Pulse Rate 78 82 82 Respiratory 18 Rate Blood Pressure 140/76 148/81 O2 Sat by Pulse 97 Oximetry 07/13/19 13:55 Temperature 98.7 F Pulse Rate 73 Respiratory 18 Rate Blood Pressure 149/78 O2 Sat by Pulse 97 Oximetry - Lab 07/12/19 08:29 07/13/19 03:49 Most recent lab results Calcium 8.8 mg/dL (8.4-10.2) 07/13/19 03:49 Medications & Allergies - Medications Allergies/Adverse Reactions: Allergies No Known Allergies Allergy (Verified 05/31/19 12:37) Home Medications: Home Medications Medication Instructions Recorded Confirmed Last Taken Type Aspirin [Aspirin BABY CHEW TAB] 81 mg PO QDAY #30 tab.chew 01/20/17 07/12/19 06/22/19 Rx Acetaminophen [Acetaminophen TAB] 650 mg PO Q4H PRN #7 day 07/24/17 07/12/19 Unknown Rx Metoprolol [Lopressor TAB] 50 mg PO Q12HR #60 tablet 06/02/19 07/12/19 06/22/19 08:00 Rx ALPRAZolam [Xanax TAB] 0.25 mg PO Q12H PRN #10 tablet 06/26/19 07/12/19 Unknown Rx Pantoprazole [Protonix TAB] 40 mg PO DAILY #30 tablet 06/26/19 07/12/19 Unknown Rx Zolpidem [Ambien] 5 mg PO QHS PRN #7 tablet 06/26/19 07/12/19 Unknown Rx hydrALAZINE [Apresoline TAB] 25 mg PO Q8HR #90 tablet 06/26/19 07/12/19 Unknown Rx Active Medications: Generic Name Dose Route Start Last Admin Trade Name Freq PRN Reason Stop Dose Admin Acetaminophen 650 mg 07/12/19 10:10 07/12/19 21:57 Tylenol PO 650 mg Q4H PRN Administration Pain MILD(1-3)/Fever >100.5/ARMAS Alprazolam 0.25 mg 07/12/19 10:10 07/13/19 00:48 Xanax PO 0.25 mg Q12H PRN Administration Anxiety Aspirin 81 mg 07/13/19 10:00 07/13/19 09:21 Baby Aspirin PO 81 mg QDAY DELANO Administration Epoetin Gulshan 10,000 unit 07/12/19 09:55 07/12/19 15:28 Procrit IV 10,000 unit AUGUST PRN Administration hemodialysis Heparin Sodium (Porcine) 1,000 unit 07/12/19 09:55 07/12/19 15:05 Heparin 10,000 Units/10 Ml IV 1,000 unit AUGUST PRN Administration hemodialysis Heparin Sodium (Porcine) 5,000 unit 07/12/19 14:00 07/13/19 14:32 Heparin SUB-Q Not Given Q8HR [facility] Hydralazine HCl 25 mg 07/12/19 14:00 07/13/19 14:32 Apresoline PO Not Given Q8HR [facility] Sodium Chloride 100 mls @ 999 mls/hr 07/13/19 14:43 Nacl 0.9% IV AUGUST PRN Hypotension Metoprolol Tartrate 50 mg 07/12/19 11:00 07/13/19 09:21 Metoprolol PO 50 mg Q12HR [facility]O Administration Pantoprazole Sodium 40 mg 07/12/19 11:00 07/13/19 09:21 Protonix PO 40 mg DAILY [facility]O Administration Zolpidem Tartrate 5 mg 07/12/19 10:10 Ambien PO QHS PRN Sleep
[2019-07-13] MEDS: ONDANSETRON 4 MG/2 ML INJ IV PRN (22:38)
[2019-07-14] MEDS: hydrALAZINE 25 MG TAB PO SCH ×2 (05:40→14:10)
[2019-07-14] MEDS: ONDANSETRON 4 MG/2 ML INJ IV PRN (05:41)
[2019-07-14] MEDS: HEPARIN 5,000 UNIT/1 ML VIAL SUB-Q SCH ×3 (05:41→14:11)
[2019-07-14 07:42] LABS: Hematocrit 23.5 % (35.5-45.6); Hemoglobin 7.9 gm/dl (11.8-15.2); Mean Corpuscular HGB Conc 34 % (32-34); Mean Corpuscular Volume 95 fl (84-94); Platelet Count 238 K/mm3 (140-440); Red Blood Count 2.47 M/mm3 (3.65-5.03); Red Cell Distribution Width 14.6 % (13.2-15.2)
[2019-07-14] MEDS: METOPROLOL TARTRATE 50 MG TAB PO SCH (10:50)
[2019-07-14] MEDS: EPOETIN ALFA 10,000 UNIT/1 ML INJ IV PRN (11:51)
[2019-07-14] MEDS: PANTOPRAZOLE 40 MG TAB PO SCH (12:41)
[2019-07-14] MEDS: ASPIRIN 81 MG TAB CHEW PO SCH (12:41)
[2019-07-14 14:11] VITALS: BP 130/74
--- NOTE | 2019-07-14 14:49 | Discharge Summary ---
Providers - Providers Date of Admission: 07/12/19 09:45 Attending physician: KOFI RIVERA MD 07/12/19 09:44 Consult to Physician [CONS] Routine Comment: Consulting Provider: RALPH ALDRICH Physician Instructions: Reason For Exam: Hyperkalemia, Uremia, Dialysis 07/13/19 10:20 Physical Therapy Evaluation and Treat [CONS] Routine Comment: Reason For Exam: generalized weakness Primary care physician: [employer] OPERATOR Hospitalization Condition: Fair Hospital course: 73-year-old man who presented to the hospital because he was unable to get dialysis for 3 weeks. He was found to have hyperkalemia, he received medical treatment and dialysis. The patient medically improved after dialysis, and dialysis placement was confirmed prior to discharge. Diagnosis End-stage renal disease on HD Nonadherence to dialysis Hyperkalemia Acute metabolic encephalopathy due to uremia Hypertension Anemia of chronic disease Metabolic acidosis Disposition: TO HOME OR SELFCARE Time spent for discharge: 33 mins Core Measure Documentation - Palliative Care Palliative Care/ Comfort Measures: Not Applicable - Core Measures Any of the following diagnoses?: none Exam - Constitutional Vitals: Temp Pulse Resp BP Pulse Ox 98.1 F 94 H 20 130/74 95 07/14/19 12:34 07/14/19 14:10 07/14/19 12:34 07/14/19 14:10 07/14/19 12:34 General appearance: Present: no acute distress, well-nourished - EENT Eyes: Present: PERRL ENT: hearing intact, clear oral mucosa - Neck Neck: Present: supple, normal ROM - Respiratory Respiratory effort: normal Respiratory: bilateral: CTA - Cardiovascular Heart Sounds: Present: S1 & S2. Absent: rub, click - Extremities Extremities: pulses symmetrical, No edema Peripheral Pulses: within normal limits - Abdominal General gastrointestinal: Present: soft, non-tender, non-distended, normal bowel sounds Male genitourinary: Present: normal - Integumentary Integumentary: Present: clear, warm, dry - Musculoskeletal Musculoskeletal: gait normal, strength equal bilaterally - Psychiatric Psychiatric: appropriate mood/affect, intact judgment & insight - Neurologic Neurologic: CNII-XII intact, moves all extremities Plan Follow up with: PRIMARY CARE, [Primary Care Provider] - 3-5 Days
== END 2019-07-14 15:15 | disposition home or self-care (01) ==
LOC: ED 07:54 → 2B-ACE 09:45
PROVIDERS: ADMIT Internal Medicine; ATTEND Internal Medicine
DX: I13.2 Hypertensive heart and chronic kidney disease with heart failure and with stage 5 chronic kidney disease, or end stage renal disease (principal); I50.9 Heart failure, unspecified; N18.6 End stage renal disease; D63.1 Anemia in chronic kidney disease; R11.2 Nausea with vomiting, unspecified; E87.5 Hyperkalemia; E87.2 Acidosis; G93.41 Metabolic encephalopathy; Z79.82 Long term (current) use of aspirin; Z99.2 Dependence on renal dialysis; Z86.73 Personal history of transient ischemic attack (TIA), and cerebral infarction without residual deficits
CPT/HCPCS: 36415; 74022; 80048; 80053; 81001; 82962; 85025; 85027; 94640; 96372; 96374; 96375; 96376; 99284; G0378; J0610; J0885; J1644; J2405; G0257; J1815

== ENCOUNTER 2019-08-02 17:02 | Emergency (ER) | payer MEDICARE ==
--- NOTE | 2019-08-02 17:23 | Event Note ---
ED Screening Note Date of service: 08/02/19 Time: 17:19 ED Screening Note: 73 y o male presents with dyspnea after missing dialysis x 9 days This initial assessment/diagnostic orders/clinical plan/treatment(s) is/are subject to change based on patients health status, clinical progression and re- assessment by fellow clinical providers in the ED. Further treatment and workup at subsequent clinical providers discretion. Patient/guardian urged not to elope from the ED as their condition may be serious if not clinically assessed and managed. Initial orders include: labs, main side eval
[2019-08-02 17:58] LABS: Basophils % (Auto) 0.6 % (0.0-1.8); Eosinophils % (Auto) 3.3 % (0.0-4.3); Hematocrit 20.5 % (35.5-45.6); Lymphocytes % (Auto) 8.8 % (13.4-35.0); Mean Corpuscular HGB Conc 34 % (32-34); Mean Corpuscular Volume 93 fl (84-94); Monocytes % (Auto) 8.2 % (0.0-7.3); Platelet Count 263 K/mm3 (140-440); Red Cell Distribution Width 14.1 % (13.2-15.2)
[2019-08-02 17:59] LABS: Basophils # (Auto) 0.1 K/mm3 (0.0-0.1); Eosinophils # (Auto) 0.3 K/mm3 (0.0-0.4); Lymphocytes # (Auto) 0.9 K/mm3 (1.2-5.4); Monocytes # (Auto) 0.9 K/mm3 (0.0-0.8)
[2019-08-02 18:19] LABS: Albumin 3.3 g/dL (3.9-5); Calcium 7.4 mg/dL (8.4-10.2)
[2019-08-02 18:36] LABS: Chol/HDL Ratio 2.81 %
--- NOTE | 2019-08-02 18:36 | XRay Report ---
CHEST 1 VIEW INDICATION: sob COMPARISON: 07/28/2019 FINDINGS: Support devices: None Heart: Upper limits of normal and unchanged Lungs/Pleura: Mild, chronic appearing interstitial disease but no acute superimposed disease. No sign ificant pleural fluid. IMPRESSION: 1. No acute abnormality and no interval change. Signer Name: Malcolm Cade MD Signed: 08/02/2019 6:31 PM Workstation Name: [id number]
[2019-08-02] MEDS ORDERED: INSULIN REGULAR, HUMAN 100 UNITS/1 ML IV ONE (19:44)
[2019-08-02] MEDS ORDERED: SODIUM POLYSTYRENE 15 GM/60 ML ORAL LIQD PO ONE (19:45)
[2019-08-02] MEDS ORDERED: DEXTROSE 50% IN WATER (25GM) 50 ML SYRINGE IV ONE (19:45)
[2019-08-02] MEDS ORDERED: CALCIUM GLUCONATE 1,000 MG in SODIUM CHLORIDE 0.9% 100 ML IV ONE (20:00)
[2019-08-02] MEDS ORDERED: LORazepam 2 MG/ML VIAL IV ONE (20:08)
--- NOTE | 2019-08-02 20:15 | History and Physical Report ---
History of Present Illness Chief complaint: I wanna doc, Im sick of this History of present illness: 73 YO male with HTN, ESRD on HD(T,R,Sa) cannot recall his last dialysis date, Diastolic CHF, TIA, Anemia, Noncompliance with dialysi presents to ED for evaluation. Pt states that he does not want dialysis, and that he has changed his mind after telling his that he wound come to the hospital. Pt seen and evaluated in ED and found to have ESRD, Acidosis secondary to missed dialysis. Pt admitted to [facility] unit. Nephrology consulted in ED for urgent dialysis. Advanced care planning conducted in ED. Pt and acknowledges understanding and agreement with care plan. Pt is Alert, Oriented x4 and is capable of making his own decisions. Pt signed out AMA prior to completion of care plan. Prior admission on 07/28/19 reviewed. All listed medication reconciled at time of admission. Past History Past Medical History: other (see HPI) Past Surgical History: Other (dialysis Access) Social history: , lives with family. denies: smoking, alcohol abuse, prescription drug abuse Family history: hypertension Medications and Allergies Allergies Allergy/AdvReac Type Severity Reaction Status Date / Time No Known Allergies Allergy Verified 05/31/19 12:37 Home Medications Medication Instructions Recorded Confirmed Last Taken Type Metoprolol [Lopressor TAB] 50 mg PO Q12HR #60 tablet 06/02/19 07/28/19 07/25/19 Rx Pantoprazole [Protonix TAB] 40 mg PO DAILY #30 tablet 06/26/19 07/28/19 Unknown Rx hydrALAZINE [Apresoline TAB] 25 mg PO Q8HR #90 tablet 06/26/19 07/28/19 07/25/19 Rx Review of Systems Constitutional: other (I need dialysis), no weight loss, no weight gain, no chills, no sweats Ears, nose, mouth and throat: no ear pain, no ear discharge, no decreased hearing, no nose pain, no sinus pressure Cardiovascular: no chest pain, no orthopnea, no edema, no syncope, no shortness of breath Respiratory: no cough, no cough with sputum, no excessive sputum, no hemoptysis, no dyspnea on exertion Gastrointestinal: no nausea, no diarrhea, no constipation, no change in bowel habits Genitourinary Male: no hematuria, no discharge, no urinary frequency, no nocturia, no erectile dysfunction Rectal: no pain Musculoskeletal: no neck stiffness, no arm numbness/tingling, no low back pain, no leg numbness/tingling Integumentary: no sores, no wounds, no jaundice Neurological: no paralysis, no weakness, no parathesias, no tingling, no seizures Psychiatric: no anxiety, no memory loss, no sleep disturbances, no hypersomnia Endocrine: no cold intolerance, no polyphagia, no excessive thirst Hematologic/Lymphatic: no easy bleeding, no lymphadenopathy Allergic/Immunologic: no allergic rhinitis, no persistent infections, no anaphylaxis Exam - Constitutional Vitals: Temp Pulse Resp BP Pulse Ox 98.1 F 147 H 20 177/85 95 08/02/19 17:06 08/02/19 17:06 08/02/19 17:06 08/02/19 17:06 08/02/19 17:06 General appearance: Present: no acute distress, well-nourished - EENT Eyes: Present: PERRL ENT: hearing intact, clear oral mucosa - Neck Neck: Present: supple, normal ROM - Respiratory Respiratory effort: normal Respiratory: bilateral: CTA - Cardiovascular Heart Sounds: Present: S1 & S2. Absent: rub, click - Extremities Extremities: pulses symmetrical, No edema Peripheral Pulses: within normal limits - Abdominal General gastrointestinal: Present: soft, non-tender, non-distended, normal bowel sounds Male genitourinary: Present: normal - Integumentary Integumentary: Present: clear, warm, dry - Musculoskeletal Musculoskeletal: gait normal, strength equal bilaterally - Psychiatric Psychiatric: appropriate mood/affect, intact judgment & insight - Neurologic Neurologic: CNII-XII intact, moves all extremities Results - Labs CBC & Chem 7: 08/02/19 17:47 08/02/19 17:47 Labs: Abnormal lab results 08/02/19 08/02/19 Range/Units 17:47 17:47 RBC 2.20 L (3.65-5.03) M/mm3 Hgb 7.0 L (11.8-15.2) gm/dl Hct 20.5 L (35.5-45.6) % Lymph % (Auto) 8.8 L (13.4-35.0) % Leon % (Auto) 8.2 H (0.0-7.3) % Lymph # 0.9 L (1.2-5.4) K/mm3 Leon # 0.9 H (0.0-0.8) K/mm3 Seg Neutrophils % 79.1 H (40.0-70.0) % Seg Neutrophils # 8.2 H (1.8-7.7) K/mm3 Sodium 136 L (137-145) mmol/L Potassium 5.7 H (3.6-5.0) mmol/L Chloride 88.8 L (98-107) mmol/L Carbon Dioxide 17 L (22-30) mmol/L BUN 162 H (9-20) mg/dL Creatinine 23.6 H (0.8-1.5) mg/dL Glucose 107 H (75-100) mg/dL Calcium 7.4 L (8.4-10.2) mg/dL Troponin T 0.440 H* (0.00-0.029) ng/mL Albumin 3.3 L (3.9-5) g/dL Assessment and Plan - Patient Problems (1) Advance care planning Status: Acute (2) ESRD needing dialysis Status: Acute Plan to address problem: Pt left AMA prior to completion of workup and treatment plan. Pt admitted to medical floor, Nephrology consulted in ED, dialysis as per renal team. (3) Hyperkalemia Status: Acute Plan to address problem: Pt left AMA prior to completion of workup and treatment plan (4) Acidosis Status: Acute Plan to address problem: Pt left AMA prior to completion of workup and treatment plan. (5) Advance care planning Status: Acute Plan to address problem: +30 min. Pt is full code. Pt declined dialysis after admission. and states that he wants to leave. and "does not want to do this anymore". Pt at bedside. Pt and acknowledge understanding of the patient wishes. (6) DVT prophylaxis Status: Acute Plan to address problem: Pt left AMA prior to completion of workup and treatment plan.
[2019-08-02] MEDS ORDERED: ONDANSETRON 4 MG/2 ML INJ IV PRN (20:16)
[2019-08-02] MEDS ORDERED: ALBUTEROL 2.5 MG/3 ML NEBU IH PRN (20:16)
--- NOTE | 2019-08-02 20:53 | Emergency Department Report ---
ED General Adult HPI - General Chief complaint: Dyspnea/Respdistress Stated complaint: BODY PAIN/CP/SOB Time Seen by Provider: 08/02/19 17:19 Source: patient, family Mode of arrival: Wheelchair Limitations: Physical Limitation - History of Present Illness Initial comments: 73-year-old male with history of end-stage renal disease and congestive heart failure presents to ED for dialysis. The patient was seen in the ER 5 days ago for same, however left AGAINST MEDICAL ADVICE prior to being admitted. This seems as though the patient was last dialyzed on July 14 while he was here during hospital admission. states patient refuses to go to his dialysis center for dialysis. States he has not been dialyzed at the center since June 05, and they have taken him out of the system, the patient no longer has regular dialysis days there. Earlier, patient reported having chest pain and shortness of breath, per , however patient now denies. [facility] Former: Dr Francisco -: unknown Consistency: now resolved Improves with: none Worsens with: none Associated Symptoms: chest pain, shortness of breath. denies: fever/chills, nausea/vomiting - Related Data Previous Rx's Medication Instructions Recorded Last Taken Type Metoprolol [Lopressor TAB] 50 mg PO Q12HR #60 tablet 06/02/19 07/25/19 Rx Pantoprazole [Protonix TAB] 40 mg PO DAILY #30 tablet 06/26/19 Unknown Rx hydrALAZINE [Apresoline TAB] 25 mg PO Q8HR #90 tablet 06/26/19 07/25/19 Rx Allergies Allergy/AdvReac Type Severity Reaction Status Date / Time No Known Allergies Allergy Verified 05/31/19 12:37 ED Review of Systems ROS: Stated complaint: BODY PAIN/CP/SOB Other details as noted in HPI Comment: All other systems reviewed and negative Constitutional: denies: chills, fever Respiratory: shortness of breath Cardiovascular: chest pain Gastrointestinal: denies: abdominal pain, nausea, vomiting ED Past Medical Hx - Past Medical History Previous Medical History?: Yes Hx Hypertension: Yes Hx Heart Attack/AMI: No Hx Congestive Heart Failure: Yes Hx Liver Disease: No Hx Renal Disease: Yes (HD T Sun) Hx HIV: No Additional medical history: TIA 2014, anemia - Surgical History Past Surgical History?: Yes Additional Surgical History: Left arm fistula - Social History Smoking Status: Never Smoker - Medications Home Medications: Home Medications Medication Instructions Recorded Confirmed Last Taken Type Metoprolol [Lopressor TAB] 50 mg PO Q12HR #60 tablet 06/02/19 07/28/19 07/25/19 Rx Pantoprazole [Protonix TAB] 40 mg PO DAILY #30 tablet 06/26/19 07/28/19 Unknown Rx hydrALAZINE [Apresoline TAB] 25 mg PO Q8HR #90 tablet 06/26/19 07/28/19 07/25/19 Rx ED Physical Exam - General Limitations: Physical Limitation General appearance: alert, in no apparent distress - Head Head exam: Present: atraumatic, normocephalic - Eye Eye exam: Present: normal appearance - ENT ENT exam: Present: mucous membranes moist - Neck Neck exam: Present: normal inspection - Respiratory Respiratory exam: Present: normal lung sounds bilaterally. Absent: respiratory distress - Cardiovascular Cardiovascular Exam: Present: regular rate, normal rhythm - GI/Abdominal GI/Abdominal exam: Present: soft. Absent: distended, tenderness - Extremities Exam Extremities exam: Present: normal inspection - Neurological Exam Neurological exam: Present: alert, oriented X3 - Psychiatric Psychiatric exam: Present: normal affect, normal mood - Skin Skin exam: Present: warm, dry, intact, normal color ED Course Vital Signs 08/02/19 08/02/19 08/02/19 17:06 17:42 17:46 Temperature 98.1 F Pulse Rate 147 H 86 84 Respiratory 20 12 17 Rate Blood Pressure 177/85 O2 Sat by Pulse 95 95 Oximetry 08/02/19 08/02/19 08/02/19 18:00 18:16 18:30 Temperature Pulse Rate 84 89 84 Respiratory 15 15 12 Rate Blood Pressure 171/88 173/91 163/85 O2 Sat by Pulse 95 94 95 Oximetry 08/02/19 08/02/19 08/02/19 18:46 19:00 19:16 Temperature Pulse Rate 87 86 93 H Respiratory 14 12 13 Rate Blood Pressure 169/88 167/83 173/90 O2 Sat by Pulse 96 96 97 Oximetry - Consultations Consultation #1: 08/02/19 19:45 Spoke w/ Dr Hernandez, television specialist. Will admit pt for dialysis in the AM ED Medical Decision Making - Lab Data Result diagrams: 08/02/19 17:47 08/02/19 17:47 - EKG Data -: EKG Interpreted by Me EKG shows normal: sinus rhythm, axis, intervals, QRS complexes, ST-T waves Rate: normal - EKG Data Interpretation: no acute changes, other (no peak T waves present) - Radiology Data Radiology results: report reviewed, image reviewed - Medical Decision Making 73-year-old male presents to ED for dialysis. Patient has not been dialyzed in over 2 weeks. Chest x-ray is normal. Patient is in no resp distress. EKG shows no ST changes. Potassium is slightly elevated at 5.7. Spoke with television specialist, Dr. Cook, to get patient dialyzed in the morning. Medications ordered to treat his hyperkalemia. Spoke with hospitalist, Dr. Cook, for admission. Pt decided that he did not want to be admitted. This seems to be a similar occurrence of what transpired during his last ER visit. Spoke with pt and regarding risks and benefits of leaving vs admission. Pt understands his condition and knows that is possible if he leaves AMA. unable to convince pt to stay. She too understands the risks of leaving. will be taking the patient home. They are advised to return to the ED at any time. - Differential Diagnosis pulm edema Critical Care Time: Yes Critical care time in (mins) excluding proc time.: 35 Critical care attestation.: If time is entered above; I have spent that time in minutes in the direct care of this critically ill patient, excluding procedure time. Critical Care Time: 35 minutes ED Disposition Clinical Impression: ESRD needing dialysis, Hyperkalemia Disposition: [id number] LEFT AGAINST MED ADVICE Is pt being admited?: Yes Condition: Stable Referrals: PRIMARY CARE, [Primary Care Provider] - 3-5 Days Time of Disposition: 19:46
[2019-08-02 20:55] VITALS: BP 173/90
[2019-08-02] MEDS ORDERED: METOPROLOL TARTRATE 50 MG TAB PO SCH (22:00)
[2019-08-02] MEDS ORDERED: hydrALAZINE 25 MG TAB PO SCH (22:00)
[2019-08-03] MEDS ORDERED: PANTOPRAZOLE 40 MG TAB PO SCH (10:00)
== END 2019-08-02 20:40 | disposition left against medical advice (07) ==
LOC: ED 17:02 → UNDOADMOB 20:16 → 2B-ACE 20:16 → ED 20:40
DX: N18.6 End stage renal disease (principal); E87.5 Hyperkalemia; I13.2 Hypertensive heart and chronic kidney disease with heart failure and with stage 5 chronic kidney disease, or end stage renal disease; I50.9 Heart failure, unspecified; N28.9 Disorder of kidney and ureter, unspecified; D64.9 Anemia, unspecified; Z98.890 Other specified postprocedural states; Z79.899 Other long term (current) drug therapy; Z86.73 Personal history of transient ischemic attack (TIA), and cerebral infarction without residual deficits; Z99.2 Dependence on renal dialysis
CPT/HCPCS: 36415; 71045; 80053; 80061; 82140; 84484; 85025; 93005; 93010; J0610; J1815; J2060